=== PATIENT | female | born 1950 | race Hispanic/Latino ===

== ENCOUNTER 2017-08-29 12:28 | Emergency (ER) | payer MEDICARE ==
[2017-08-29 15:27] LABS: Bacteria,Urine 1+ /HPF (Negative); Bilirubin,Urine NEG (Negative); Blood,Urine SM (Negative); Ketones,Urine NEG (Negative); Leukocyte Esterase,Urine TR (Negative); Mucus,Urine FEW /HPF; Nitrite,Urine POS (Negative); Urobilinogen,Urine < 2.0 mg/dL (<2.0)
[2017-08-29 15:43] LABS: Anion Gap 21 mmol/L; BUN/Creatinine Ratio 33; Blood Urea Nitrogen 23 mg/dL (7-17); Calcium 8.6 mg/dL (8.4-10.2); Carbon Dioxide 21 mmol/L (22-30); Chloride 105.7 mmol/L (98-107); Glucose 97 mg/dL (65-100); Potassium 4.5 mmol/L (3.6-5.0); Sodium 143 mmol/L (137-145)
[2017-08-29 15:46] LABS: Basophils % (Auto) 0.4 % (0.0-1.8); Eosinophils % (Auto) 2.5 % (0.0-4.3); Hematocrit 41.4 % (30.3-42.9); Hemoglobin 13.8 gm/dl (10.1-14.3); Mean Corpuscular HGB Conc 33 % (30-34); Mean Corpuscular Hemoglobin 33 pg (28-32); Mean Corpuscular Volume 98 fl (79-97); Platelet Count 169 K/mm3 (140-440); Red Blood Count 4.22 M/mm3 (3.65-5.03); Red Cell Distribution Width 14.6 % (13.2-15.2); White Blood Count 9.4 K/mm3 (4.5-11.0)
[2017-08-29 16:32] LABS: INR 1.11 (0.87-1.13)
--- NOTE | 2017-08-29 16:40 | XRay Report ---
AP chest x-ray. History: Wheezing, productive cough. Findings: The heart and pulmonary vessels are normal. The lungs are clear. No pleural fluid. Median sternotomy sutures are present. Impression: No acute findings.
[2017-08-29] MEDS ORDERED: ZOFRAN IV ONE (17:14)
[2017-08-29] MEDS ORDERED: ROCEPHIN/NS 1 GM/50 ML 1 GM/50 ML BAG IV ONE (17:14)
[2017-08-29] MEDS ORDERED: NACL 0.9% 1000 ML 1,000 ML IV ONE (17:14)
--- NOTE | 2017-08-29 17:14 | Emergency Department Report ---
ED Abdominal Pain HPI - General Chief Complaint: Nausea/Vomiting/Diarrhea Stated Complaint: LIGHT HEADED/WEAKNESS Time Seen by Provider: 08/29/17 16:15 Source: patient, EMS Mode of arrival: Stretcher Limitations: No Limitations - History of Present Illness Initial Comments: Patient is a 67-year-old female history of hypertension COPD presented with vomiting and diffuse abdominal pain as well on for 2 days denied any diarrhea fever patient started abdominal pain is resolved now. Patient denied any chest pain shortness of breath. MD Complaint: abdominal pain -: Last night Location: diffuse Associated Symptoms: nausea, vomiting - Related Data Home Medications Medication Instructions Recorded Confirmed Last Taken Aspirin 81 mg PO DAILY 08/29/17 08/29/17 Unknown Citalopram [celeXA] 20 mg PO QDAY 08/29/17 08/29/17 08/22/17 Diltiazem [CarDIZEM] 90 mg PO DAILY 08/29/17 08/29/17 08/22/17 Warfarin [Coumadin] 2.5 mg PO QDAY 08/29/17 08/29/17 08/22/17 Allergies Allergy/AdvReac Type Severity Reaction Status Date / Time No Known Allergies Allergy Unverified 08/29/17 12:54 ED Review of Systems ROS: Stated complaint: LIGHT HEADED/WEAKNESS Other details as noted in HPI Comment: All other systems reviewed and negative Constitutional: denies: chills, fever Respiratory: denies: cough, orthopnea, shortness of breath, SOB with exertion Cardiovascular: denies: chest pain Gastrointestinal: abdominal pain, nausea, vomiting. denies: diarrhea, constipation Musculoskeletal: denies: back pain Neurological: denies: headache ED Past Medical Hx - Past Medical History Previous Medical History?: Yes Hx Hypertension: Yes Hx COPD: Yes Additional medical history: MECHANICAL AORTIC VALVE REPLACEMENT, SMOKER - Surgical History Past Surgical History?: Yes Additional Surgical History: BACK SURGERIES, AORTIC VALVE REPLACEMENT - Social History Smoking Status: Current Every Day Smoker Substance Use Type: None - Medications Home Medications: Home Medications Medication Instructions Recorded Confirmed Last Taken Type Aspirin 81 mg PO DAILY 08/29/17 08/29/17 Unknown History Citalopram [celeXA] 20 mg PO QDAY 08/29/17 08/29/17 08/22/17 History Diltiazem [CarDIZEM] 90 mg PO DAILY 08/29/17 08/29/17 08/22/17 History Warfarin [Coumadin] 2.5 mg PO QDAY 08/29/17 08/29/17 08/22/17 History ED Physical Exam - General Limitations: No Limitations General appearance: alert, in no apparent distress - Head Head exam: Present: normocephalic - ENT ENT exam: Present: normal exam - Neck Neck exam: Present: normal inspection. Absent: tenderness - Respiratory Respiratory exam: Present: normal lung sounds bilaterally. Absent: respiratory distress, wheezes, rales - Cardiovascular Cardiovascular Exam: Present: regular rate, normal rhythm, normal heart sounds - GI/Abdominal GI/Abdominal exam: Present: soft, normal bowel sounds. Absent: distended, tenderness, guarding, rebound, rigid, mass, bruit, pulsatile mass, hernia - Extremities Exam Extremities exam: Present: normal inspection, normal capillary refill - Neurological Exam Neurological exam: Present: alert, oriented X3, CN II-XII intact - Skin Skin exam: Present: warm, intact ED Course Vital Signs 08/29/17 08/29/17 08/29/17 12:49 14:31 14:45 Temperature 98.5 F Pulse Rate 79 62 Respiratory 18 12 Rate Blood Pressure 196/109 186/101 Blood Pressure [Left] O2 Sat by Pulse 94 99 100 Oximetry 08/29/17 08/29/17 08/29/17 15:01 15:06 15:15 Temperature Pulse Rate 55 L 61 Respiratory 17 18 19 Rate Blood Pressure 186/97 186/97 Blood Pressure [Left] O2 Sat by Pulse 100 94 97 Oximetry 08/29/17 08/29/17 08/29/17 15:31 15:45 16:01 Temperature Pulse Rate 61 74 63 Respiratory 16 22 15 Rate Blood Pressure 186/97 186/97 Blood Pressure [Left] O2 Sat by Pulse 100 99 Oximetry 08/29/17 08/29/17 08/29/17 16:39 16:45 17:01 Temperature Pulse Rate 65 66 67 Respiratory 18 17 17 Rate Blood Pressure Blood Pressure [Left] O2 Sat by Pulse 97 98 100 Oximetry 08/29/17 08/29/17 08/29/17 17:15 17:31 19:17 Temperature 97.9 F Pulse Rate 70 61 76 Respiratory 16 14 18 Rate Blood Pressure 193/93 Blood Pressure 176/92 [Left] O2 Sat by Pulse 99 99 100 Oximetry - Reevaluation(s) Reevaluation #1: 08/29/17 19:43 Patient stated that she is feeling better no nausea no vomiting headache is improved. ED Medical Decision Making - Lab Data Result diagrams: 08/29/17 15:04 08/29/17 15:04 - EKG Data -: EKG Interpreted by Me - EKG Data Interpretation: no acute changes - Radiology Data Radiology results: report reviewed CT brain/CT abdomen no acute abnormalities. - Medical Decision Making Patient stated that she is feeling better,her labs and x-ray came back negative for acute abnormalities, urine is positive for UTI, patient received Rocephin in the ER and will discharge with ciprofloxacin prescription and Zofran and patient to follow up with her primary care physician. Critical care attestation.: If time is entered above; I have spent that time in minutes in the direct care of this critically ill patient, excluding procedure time. ED Disposition Clinical Impression: Abdominal pain, Headache, UTI (urinary tract infection) Disposition: - TO HOME OR SELFCARE Is pt being admited?: No Condition: Stable Instructions: Urinary Tract Infection in Women (ED), Acute Nausea and Vomiting (ED) Referrals: PRIMARY CARE, [Primary Care Provider] - 3-5 Days
--- NOTE | 2017-08-29 17:29 | Cat Scan Report ---
FINAL REPORT EXAM: CT HEAD/BRAIN WO CON HISTORY: headache, nausea/vomiting TECHNIQUE: CT examination of the head without IV contrast PRIORS: None. FINDINGS: Patient motion artifact severely degrades image quality and severely limits the examination. Upper portion of brain obscured. Anterior portion of left frontal lobe not imaged. Scattered slight paranasal sinus mucosal thickening No acute air-fluid level visualized in the included air-filled sinuses. Visible bone windows demonstrate no acute fracture. There is ventricular and sulcal prominence compatible with global cerebrocortical atrophy. The visible brain contains no mass, mass effect, hemorrhage, or acute infarct. There is no visible extra-axial intracranial bleed, brain bleed, or midline shift. IMPRESSION: No acute CVA, intracranial bleed, or brain mass in the visible brain. Examination severely limited by motion artifact and left frontal lobe not completely visualized
--- NOTE | 2017-08-29 18:02 | Cat Scan Report ---
FINAL REPORT EXAM: CT ABDOMEN WO CON HISTORY: headache, nausea/vomiting TECHNIQUE: CT examination of the abdomen without IV contrast PRIORS: None. FINDINGS: Lumbar spine dorsal fusion hardware. Hardware appears intact without CT evidence of loosening. Metal artifact limits the examination. Degenerative change in the regional skeleton. Lumbar spine rotatory curvature with mid left apex. Sternotomy cerclage wires are present. There may be a prosthetic cardiac valve, partially imaged. Nonspecific bilobed nodular opacity in the right lung base extends from the hilum to the diaphragm. Sagittal dimension is approximately 2.2 cm with a transverse dimension of 1.7 cm. Margins are irregular. This may be scarring or atelectasis. Slight hepatomegaly with sagittal dimension of 18.1 cm. No evidence of focal liver lesion. Normal noncontrast appearance of the gallbladder, adrenals, pancreas, and spleen. Normal caliber abdominal aorta with severe calcified atherosclerotic plaque. Normal caliber IVC. Normal-appearing right kidney and visible right ureteral segment. A nonspecific, smoothly marginated, low density left renal lesion may be a cyst, favored by internal water density. No left renal calculus or hydronephrosis. No distention or calculus in visible left ureteral segment. Normal-appearing stomach and duodenum. No small bowel distention. No distention in visible portion of large intestine. No gross ascites or free air. No definite mass or adenopathy. IMPRESSION: Right lung base nodular opacity extending from the hilum to the inferior pleural surface at the diaphragm. This may be scarring or atelectasis. Differential includes inflammation, infection, or neoplasm Slight hepatomegaly without focal liver lesion No CT evidence of definite intestinal abnormality
[2017-08-29 19:20] VITALS: BP 176/92
[2017-08-29] MEDS ORDERED: LOVENOX SUB-Q ONE ×2 (20:08→20:58)
[2017-08-29] MEDS ORDERED: COUMADIN PO ONE (20:30)
== END 2017-08-29 21:10 | disposition home or self-care (01) ==
LOC: ED 12:28
DX: N39.0 Urinary tract infection, site not specified (principal); R10.9 Unspecified abdominal pain; R51 Headache; I10 Essential (primary) hypertension; J44.9 Chronic obstructive pulmonary disease, unspecified; F17.200 Nicotine dependence, unspecified, uncomplicated
CPT/HCPCS: 36415; 70450; 71010; 74150; 80048; 81001; 85025; 85610; 93005; 93010; 96365; 96372; 96375; 99285; J0696; J1650; J2405; J7030

== ENCOUNTER 2018-03-02 17:09 | Emergency (ER) | payer MEDICARE ==
[2018-03-02 17:58] VITALS: BP 153/106
--- NOTE | 2018-03-02 21:11 | Emergency Department Report ---
ED Medical Clearance HPI - General Chief complaint: Recheck/Abnormal Lab/Rx Stated complaint: MED REFILL Time Seen by Provider: 03/02/18 21:04 Source: patient Mode of arrival: Ambulatory - History of Present Illness Initial comments: 67-year-old -[place] female with a past medical history of A. fib depression comes in today for medication refill. Patient reports that she is out of medication and that her insurance is changing and she needs medication for at least one month. Patient declines any other issues at this time. Home medications: Home Medications Medication Instructions Recorded Confirmed Last Taken Aspirin 81 mg PO DAILY 08/29/17 08/29/17 Unknown Citalopram [celeXA] 20 mg PO QDAY 08/29/17 08/29/17 08/22/17 Diltiazem [CarDIZEM] 90 mg PO DAILY 08/29/17 08/29/17 08/22/17 Warfarin [Coumadin] 2.5 mg PO QDAY 08/29/17 08/29/17 08/22/17 Previous Rx's Medication Instructions Recorded Last Taken Type Acetaminophen/Codeine [Tylenol 1 tab PO Q6H PRN #30 tab 08/29/17 Unknown Rx /Codeine # 3 tab] Ciprofloxacin HCl [Ciprofloxacin 500 mg PO Q12H #14 tab 08/29/17 Unknown Rx TAB] Ondansetron [Zofran Odt] 4 mg PO Q8HR PRN #14 tab.rapdis 08/29/17 Unknown Rx Citalopram [Celexa] 40 mg PO QDAY #30 tablet 03/02/18 Unknown Rx Diltiazem [Cardizem] 90 mg PO BID #60 tablet 03/02/18 Unknown Rx Warfarin [Coumadin] 5 mg PO QDAY #34 tablet 03/02/18 Unknown Rx Allergies/Adverse reactions: Allergies Allergy/AdvReac Type Severity Reaction Status Date / Time No Known Allergies Allergy Verified 03/02/18 17:52 ED Review of Systems ROS: Stated complaint: MED REFILL Other details as noted in HPI Constitutional: denies: chills, fever Eyes: denies: eye pain, eye discharge, vision change ENT: denies: ear pain, throat pain Respiratory: denies: cough, shortness of breath, wheezing Cardiovascular: denies: chest pain, palpitations Endocrine: no symptoms reported Gastrointestinal: denies: abdominal pain, nausea, diarrhea Genitourinary: denies: urgency, dysuria, discharge Musculoskeletal: denies: back pain, joint swelling, arthralgia Skin: denies: rash, lesions Neurological: denies: headache, weakness, paresthesias Psychiatric: denies: anxiety, depression Hematological/Lymphatic: denies: easy bleeding, easy bruising ED Past Medical Hx - Past Medical History Hx Hypertension: Yes Hx COPD: Yes Additional medical history: MECHANICAL AORTIC VALVE REPLACEMENT, SMOKER - Surgical History Additional Surgical History: BACK SURGERIES, AORTIC VALVE REPLACEMENT - Social History Smoking Status: Never Smoker Substance Use Type: None - Medications Home Medications: Home Medications Medication Instructions Recorded Confirmed Last Taken Type Acetaminophen/Codeine [Tylenol 1 tab PO Q6H PRN #30 tab 08/29/17 Unknown Rx /Codeine # 3 tab] Aspirin 81 mg PO DAILY 08/29/17 08/29/17 Unknown History Ciprofloxacin HCl [Ciprofloxacin 500 mg PO Q12H #14 tab 08/29/17 Unknown Rx TAB] Citalopram [celeXA] 20 mg PO QDAY 08/29/17 08/29/17 08/22/17 History Diltiazem [CarDIZEM] 90 mg PO DAILY 08/29/17 08/29/17 08/22/17 History Ondansetron [Zofran Odt] 4 mg PO Q8HR PRN #14 tab.rapdis 08/29/17 Unknown Rx Warfarin [Coumadin] 2.5 mg PO QDAY 08/29/17 08/29/17 08/22/17 History Citalopram [Celexa] 40 mg PO QDAY #30 tablet 03/02/18 Unknown Rx Diltiazem [Cardizem] 90 mg PO BID #60 tablet 03/02/18 Unknown Rx Warfarin [Coumadin] 5 mg PO QDAY #34 tablet 03/02/18 Unknown Rx ED Physical Exam - General Limitations: No Limitations General appearance: alert, in no apparent distress - Head Head exam: Present: atraumatic, normocephalic - Eye Eye exam: Present: normal appearance - ENT ENT exam: Present: mucous membranes moist - Respiratory Respiratory exam: Present: normal lung sounds bilaterally. Absent: respiratory distress - Cardiovascular Cardiovascular Exam: Present: regular rate, normal rhythm. Absent: systolic murmur, diastolic murmur, rubs, gallop - Extremities Exam Extremities exam: Present: normal inspection - Back Exam Back exam: Present: normal inspection - Neurological Exam Neurological exam: Present: alert, oriented X3 - Psychiatric Psychiatric exam: Present: normal affect, normal mood ED Course Vital Signs 03/02/18 17:52 Temperature 98.6 F Pulse Rate 66 Respiratory 16 Rate Blood Pressure 153/106 O2 Sat by Pulse 96 Oximetry ED Medical Decision Making - Medical Decision Making Patient's been evaluated by this provider fast track. I discussed the patient she is to follow up with her primary care provider for management of her chronic issues. Patient verbalized understanding. ED Disposition Clinical Impression: Encounter for medication refill Disposition: DC-01 TO HOME OR SELFCARE Is pt being admited?: No Does the pt Need Aspirin: No Condition: Stable Additional Instructions: Please follow-up with your primary care provider as soon as possible. For further management of her chronic diseases. Prescriptions: Citalopram [Celexa] 40 mg PO QDAY #30 tablet Diltiazem [Cardizem] 90 mg PO BID #60 tablet Warfarin [Coumadin] 5 mg PO QDAY #34 tablet Referrals: PRIMARY CARE [Primary Care Provider] - 3-5 Days
== END 2018-03-02 21:22 | disposition home or self-care (01) ==
LOC: ED 17:09
DX: I48.91 Unspecified atrial fibrillation (principal); Z76.0 Encounter for issue of repeat prescription; F32.9 Major depressive disorder, single episode, unspecified; Z79.82 Long term (current) use of aspirin; I10 Essential (primary) hypertension; J44.9 Chronic obstructive pulmonary disease, unspecified
CPT/HCPCS: 99282

== ENCOUNTER 2021-01-19 23:11 | Inpatient (IN) | payer MEDICARE, OTHER ==
--- NOTE | 2021-01-19 23:29 | Emergency Department Report ---
ED General Adult HPI - General Chief complaint: Pain General Stated complaint: SWELLING IN RT BREAST Time Seen by Provider: 01/19/21 23:19 Source: EMS Mode of arrival: Stretcher Limitations: Altered Mental Status - History of Present Illness Initial comments: Patient is 70 years old female with history of dementia, hypertension and mechanical aortic valve replacement. Patient presented to the ER via EMS from home with the main complaint of bilateral breast swelling. Patient stated that she thinks she has a congestive heart failure. Patient currently denying any chest pain, shortness of breath or lower extremity swelling. Patient also denied any fever or chills. However patient daughter stated that she has been having shortness of breath and difficulty in breathing for the last few days. No history of congestive heart failure before. -: days(s) Severity scale (0 -10): 0 - Related Data Home Medications Medication Instructions Recorded Confirmed Last Taken Aspirin 81 mg PO DAILY 08/29/17 08/29/17 Unknown Citalopram [celeXA] 20 mg PO QDAY 08/29/17 08/29/17 08/22/17 Warfarin [Coumadin] 2.5 mg PO QDAY 08/29/17 08/29/17 08/22/17 dilTIAZem [CarDIZEM] 90 mg PO DAILY 08/29/17 08/29/17 08/22/17 Previous Rx's Medication Instructions Recorded Last Taken Type Acetaminophen/Codeine [Tylenol 1 tab PO Q6H PRN #30 tab 08/29/17 Unknown Rx /Codeine # 3 tab] Ciprofloxacin HCl [Ciprofloxacin 500 mg PO Q12H #14 tab 08/29/17 Unknown Rx TAB] Ondansetron [Zofran Odt] 4 mg PO Q8HR PRN #14 tab.rapdis 08/29/17 Unknown Rx Citalopram [Celexa] 40 mg PO QDAY #30 tablet 03/02/18 Unknown Rx Warfarin [Coumadin] 5 mg PO QDAY #34 tablet 03/02/18 Unknown Rx dilTIAZem [Cardizem] 90 mg PO BID #60 tablet 03/02/18 Unknown Rx Allergies Allergy/AdvReac Type Severity Reaction Status Date / Time No Known Allergies Allergy Verified 03/02/18 17:52 ED Review of Systems ROS: Stated complaint: SWELLING IN RT BREAST Other details as noted in HPI Comment: All other systems reviewed and negative Constitutional: denies: chills, fever Respiratory: denies: cough, shortness of breath, SOB with exertion, SOB at rest Cardiovascular: denies: chest pain, palpitations Gastrointestinal: denies: abdominal pain, nausea Musculoskeletal: denies: back pain Neurological: denies: headache, weakness ED Past Medical Hx - Past Medical History Hx Hypertension: Yes Hx COPD: Yes Additional medical history: MECHANICAL AORTIC VALVE REPLACEMENT, SMOKER - Surgical History Additional Surgical History: BACK SURGERIES, AORTIC VALVE REPLACEMENT - Social History Smoking Status: Former Smoker - Medications Home Medications: Home Medications Medication Instructions Recorded Confirmed Last Taken Type Acetaminophen/Codeine [Tylenol 1 tab PO Q6H PRN #30 tab 08/29/17 Unknown Rx /Codeine # 3 tab] Aspirin 81 mg PO DAILY 08/29/17 08/29/17 Unknown History Ciprofloxacin HCl [Ciprofloxacin 500 mg PO Q12H #14 tab 08/29/17 Unknown Rx TAB] Citalopram [celeXA] 20 mg PO QDAY 08/29/17 08/29/17 08/22/17 History Ondansetron [Zofran Odt] 4 mg PO Q8HR PRN #14 tab.rapdis 08/29/17 Unknown Rx Warfarin [Coumadin] 2.5 mg PO QDAY 08/29/17 08/29/17 08/22/17 History dilTIAZem [CarDIZEM] 90 mg PO DAILY 08/29/17 08/29/17 08/22/17 History Citalopram [Celexa] 40 mg PO QDAY #30 tablet 03/02/18 Unknown Rx Warfarin [Coumadin] 5 mg PO QDAY #34 tablet 03/02/18 Unknown Rx dilTIAZem [Cardizem] 90 mg PO BID #60 tablet 03/02/18 Unknown Rx ED Physical Exam - General Limitations: Altered Mental Status General appearance: alert, in no apparent distress - Head Head exam: Present: atraumatic, normocephalic, normal inspection - Eye Eye exam: Present: normal appearance - ENT ENT exam: Present: normal exam, normal orophraynx, mucous membranes moist - Neck Neck exam: Present: normal inspection, full ROM. Absent: tenderness, meningismus - Respiratory Respiratory exam: Present: normal lung sounds bilaterally - Cardiovascular Cardiovascular Exam: Present: regular rate, normal rhythm, normal heart sounds - GI/Abdominal GI/Abdominal exam: Present: soft, normal bowel sounds. Absent: distended, tenderness, guarding, rebound, rigid, organomegaly, mass, bruit, pulsatile mass, hernia - Extremities Exam Extremities exam: Present: normal inspection, full ROM, normal capillary refill. Absent: pedal edema, calf tenderness - Back Exam Back exam: Present: normal inspection, full ROM. Absent: CVA tenderness (R), CVA tenderness (L) - Neurological Exam Neurological exam: Present: alert, oriented X3, CN II-XII intact - Psychiatric Psychiatric exam: Present: normal mood - Skin Skin exam: Present: warm, intact, normal color ED Course Vital Signs 01/19/21 01/19/21 01/19/21 23:21 23:30 23:46 Temperature 98.1 F Pulse Rate 87 86 88 Respiratory 20 28 H 28 H Rate Blood Pressure 152/80 127/54 Blood Pressure 156/99 [Left] O2 Sat by Pulse 100 100 100 Oximetry ED Medical Decision Making - Lab Data Result diagrams: 01/19/21 23:25 - EKG Data -: EKG Interpreted by Dc Rate: normal - EKG Data 01/20/21 00:30 Atrial fibrillation with a heart rate of 82. - Medical Decision Making Patient is 70 years old female with history of dementia, hypertension and mechanical aortic valve replacement. Patient presented to the ER via EMS from home with the main complaint of bilateral breast swelling. Patient stated that she thinks she has a congestive heart failure. Patient currently denying any chest pain, shortness of breath or lower extremity swelling. Patient also denied any fever or chills. However patient daughter stated that she has been having shortness of breath and difficulty in breathing for the last few days. No history of congestive heart failure before. EKG showed a atrial fibrillation with a heart rate of 82. Chest x-ray showed pulmonary edema with right pleural effusion. Rest of the labs are unremarkable except for his significantly elevated BNP of more than 13,000. Patient received Lasix 40 mg IV. I discussed the patient with Dr. Mccrary, he agreed to admit the patient to medical service for further management. Critical Care Time: Yes Critical care time in (mins) excluding proc time.: 30 Critical care attestation.: If time is entered above; I have spent that time in minutes in the direct care of this critically ill patient, excluding procedure time. ED Disposition Clinical Impression: New onset of congestive heart failure, Shortness of breath Disposition: OP ADMIT IP TO THIS HOSP Is pt being admited?: Yes Condition: Stable Referrals: PRIMARY CARE, [Primary Care Provider] - 3-5 Days
--- NOTE | 2021-01-20 | XRay Report ---
XR chest 1V ap INDICATION / CLINICAL INFORMATION: Dyspnea. COMPARISON: None available. FINDINGS: SUPPORT DEVICES: None. HEART /PULMONARY VASCULATURE: Cardiac enlargement with pulmonary vasculature congestion.Median sterno chika changes. LUNGS / PLEURA: Trace right pleural effusion and mild airspace opacity. No pneumothorax. ADDITIONAL FINDINGS: No significant additional findings. IMPRESSION: Findings most consistent with CHF with trace right pleural effusion and pulmonary edema. Signer Name: Porfirio Carter MD Signed: 01/19/2021 11:56 PM Workstation Name: [id number]
[2021-01-20 00:09] LABS: BUN/Creatinine Ratio 26; Blood Urea Nitrogen 23 mg/dL (7-17); Calcium 8.3 mg/dL (8.4-10.2); Hemolysis Index 2
[2021-01-20 00:11] LABS: Albumin 3.1 g/dL (3.9-5); Bilirubin,Direct 0.3 mg/dL (0-0.2)
[2021-01-20] MEDS ORDERED: FUROSEMIDE 40 MG/4 ML INJ IV ONE (00:26)
[2021-01-20 00:28] LABS: INR 3.26 (0.87-1.13)
[2021-01-20 00:29] LABS: Partial Thromboplastin Time 52.4 Sec. (24.2-36.6)
[2021-01-20 00:38] LABS: Basophils % (Auto) 0.2 % (0.0-1.8); Eosinophils # (Auto) 0.1 K/mm3 (0.0-0.4); Eosinophils % (Auto) 1.1 % (0.0-4.3); Hematocrit 30.4 % (30.3-42.9); Hemoglobin 9.6 gm/dl (10.1-14.3); Lymphocytes # (Auto) 0.8 K/mm3 (1.2-5.4); Lymphocytes % (Auto) 12.6 % (13.4-35.0); Mean Corpuscular HGB Conc 32 % (30-34); Mean Corpuscular Volume 82 fl (79-97); Monocytes # (Auto) 0.6 K/mm3 (0.0-0.8); Monocytes % (Auto) 9.1 % (0.0-7.3); Platelet Count 293 K/mm3 (140-440); Red Blood Count 3.71 M/mm3 (3.65-5.03); Red Cell Distribution Width 18.2 % (13.2-15.2)
[2021-01-20] MEDS ORDERED: ONDANSETRON 4 MG/2 ML INJ IV PRN (01:54)
--- NOTE | 2021-01-20 05:28 | History and Physical Report ---
History of Present Illness Date of examination: 01/20/21 Date of admission: 01/20/21 00:51 Chief complaint: Chief complaint is shortness of breath History of present illness: History of presenting illness, patient is a 70-year-old female with past medical history of hypertension, dementia and aortic valve disease who presented to the emergency room with complaint of swelling in both breasts, however patient's daughter said that patient has been having shortness of breath. Denies history of cough according to the patient but no history of ankle edema, chest pain, fever or chills Past History Past Medical History: COPD, hypertension, other (DEMENTIA , AORTIC VALVE LESION) Past Surgical History: valve replacement, Other (BACK SURGERY) Social history: no significant social history Family history: no significant family history Medications and Allergies Allergies Allergy/AdvReac Type Severity Reaction Status Date / Time No Known Allergies Allergy Verified 03/02/18 17:52 Home Medications Medication Instructions Recorded Confirmed Last Taken Type Acetaminophen/Codeine [Tylenol 1 tab PO Q6H PRN #30 tab 08/29/17 Unknown Rx /Codeine # 3 tab] Aspirin 81 mg PO DAILY 08/29/17 08/29/17 Unknown History Ciprofloxacin HCl [Ciprofloxacin 500 mg PO Q12H #14 tab 08/29/17 Unknown Rx TAB] Citalopram [celeXA] 20 mg PO QDAY 08/29/17 08/29/17 08/22/17 History Ondansetron [Zofran Odt] 4 mg PO Q8HR PRN #14 tab.rapdis 08/29/17 Unknown Rx Warfarin [Coumadin] 2.5 mg PO QDAY 08/29/17 08/29/17 08/22/17 History dilTIAZem [CarDIZEM] 90 mg PO DAILY 08/29/17 08/29/17 08/22/17 History Citalopram [Celexa] 40 mg PO QDAY #30 tablet 03/02/18 Unknown Rx Warfarin [Coumadin] 5 mg PO QDAY #34 tablet 03/02/18 Unknown Rx dilTIAZem [Cardizem] 90 mg PO BID #60 tablet 03/02/18 Unknown Rx Active Meds: Active Medications Acetaminophen (Acetaminophen 325 Mg Tab) 650 mg PO Q4H PRN PRN Reason: Pain, Mild (1-3) Aspirin (Aspirin 81 Mg Tab Chew) 81 mg PO DAILY [facility] Citalopram Hydrobromide (Citalopram 20 Mg Tab) 20 mg PO QDAY [facility] Furosemide (Furosemide 40 Mg/4 Ml Inj) 40 mg IV QDAY [facility] Nitroglycerin (Nitroglycerin 2% Oint 1 Gm) 0.5 inch TP QIDNTG [facility]; Protocol Ondansetron HCl (Ondansetron 4 Mg/2 Ml Inj) 4 mg IV Q8H PRN PRN Reason: Nausea And Vomiting Warfarin Sodium (Warfarin 2.5 Mg Tab) 2.5 mg PO QDAY [facility]; Protocol Review of Systems Constitutional: weakness, no fever, no chills, no sweats Eyes: bilateral: other (NO BILATERAL EYE SYMPTOM) Ears, nose, mouth and throat: no ear pain Breasts: deferred Cardiovascular: shortness of breath, no chest pain, no orthopnea, no palpitations, no rapid/irregular heart beat, no edema, no syncope, no lightheadedness Respiratory: shortness of breath, dyspnea on exertion, no cough, no cough with sputum, no congestion, no wheezing, no pleurisy Gastrointestinal: no nausea, no vomiting, no diarrhea, no constipation Genitourinary Female: no Menstruation: postmenopausal Rectal: no pain Musculoskeletal: no neck stiffness, no neck pain Integumentary: no rash, no pruritis, no redness, no sores, no wounds Neurological: no weakness, no numbness, no seizures, no syncope, no tremors, no vertigo, no headaches Psychiatric: no anxiety, no confusion Endocrine: no polyuria, no nocturia Hematologic/Lymphatic: no easy bruising, no lymphadenopathy Exam - Constitutional Vitals: Temp Pulse Resp BP Pulse Ox 97.2 F L 86 18 153/74 96 01/20/21 04:10 01/20/21 04:10 01/20/21 04:10 01/20/21 04:10 01/20/21 04:10 General appearance: Present: no acute distress - EENT Eyes: Present: PERRL, EOM intact ENT: hearing intact, clear oral mucosa - Neck Neck: Present: supple, normal ROM - Respiratory Respiratory effort: normal - Cardiovascular Rhythm: regular Heart Sounds: Present: S1 & S2. Absent: gallop, systolic murmur, diastolic murm ur, click - Extremities Extremities: no ischemia, No edema - Abdominal General gastrointestinal: Present: soft, non-tender, non-distended. Absent: tender, distended, mass Female genitourinary: Present: deferred - Rectal Rectal Exam: deferred - Integumentary Integumentary: Present: clear, warm, dry - Musculoskeletal Musculoskeletal: generalized weakness - Psychiatric Psychiatric: appropriate mood/affect HEART Score - HEART Score Risk factors: 1-2 risk factors Troponin: Troponin T 0.053 ng/mL (0.00-0.029) H 01/20/21 02:05 Troponin: < normal limit - Critical Actions Critical Actions: 0-3 pts:0.9-1.7%risk of adverse cardiac event.Candidate for discharge Results - Labs CBC & Chem 7: 01/19/21 23:25 01/19/21 23:25 Labs: Laboratory Last Values WBC 6.5 K/mm3 (4.5-11.0) 01/19/21 23: RBC 3.71 M/mm3 (3.65-5.03) 01/19/21 23: Hgb 9.6 gm/dl (10.1-14.3) L 01/19/21 23: Hct 30.4 % (30.3-42.9) 01/19/21 23: MCV 82 fl (79-97) 01/19/21 23: MCH 26 pg (28-32) L 01/19/21 23: MCHC 32 % (30-34) 01/19/21 23:25 RDW 18.2 % (13.2-15.2) H 01/19/21 23:25 Plt Count 293 K/mm3 (140-440) 01/19/21 23: Lymph % (Auto) 12.6 % (13.4-35.0) L 01/19/21 23: [place] % (Auto) 9.1 % (0.0-7.3) H 01/19/21 23: Eos % (Auto) 1.1 % (0.0-4.3) 01/19/21 23: Baso % (Auto) 0.2 % (0.0-1.8) 01/19/21 23: Lymph # (Auto) 0.8 K/mm3 (1.2-5.4) L 01/19/21: [place] # (Auto) 0.6 K/mm3 (0.0-0.8) 01/19/21 23:25 Eos # (Auto) 0.1 K/mm3 (0.0-0.4) 01/19/21 23:25 Baso # (Auto) 0.0 K/mm3 (0.0-0.1) 01/19/21 23:25 Seg Neutrophils % 77.0 % (40.0-70.0) H 01/19/21 23:25 Seg Neutrophils # 5.0 K/mm3 (1.8-7.7) 01/19/21 23:25 PT 33.5 Sec. (12.2-14.9) H 01/19/21 23:25 INR 3.26 (0.87-1.13) H 01/19/21 23:25 APTT 52.4 Sec. (24.2-36.6) H 01/19/21 23:25 Sodium 138 mmol/L (137-145) 01/19/21 23:25 Potassium 3.6 mmol/L (3.6-5.0) 01/19/21 23:25 Chloride 102.0 mmol/L (98-107) 01/19/21 23:25 Carbon Dioxide 28 mmol/L (22-30) 01/19/21 23:25 Anion Gap 12 mmol/L 01/19/21 23:25 BUN 23 mg/dL (7-17) H 01/19/21 23:25 Creatinine 0.9 mg/dL (0.6-1.2) 01/19/21 23:25 Estimated GFR > 60 ml/min 01/19/21 23:25 BUN/Creatinine Ratio 26 % 01/19/21 23:25 Glucose 90 mg/dL (65-100) 01/19/21 23:25 Calcium 8.3 mg/dL (8.4-10.2) L 01/19/21 23:25 Total Bilirubin 0.70 mg/dL (0.1-1.2) 01/19/21 23:25 Direct Bilirubin 0.3 mg/dL (0-0.2) H 01/19/21 23:25 Indirect Bilirubin 0.4 mg/dL 01/19/21 23:25 AST 22 units/L (5-40) 01/19/21 23:25 ALT 13 units/L (7-56) 01/19/21 23:25 Alkaline Phosphatase 74 units/L (35-129) 01/19/21 23:25 Troponin T 0.053 ng/mL (0.00-0.029) H 01/20/21 02:05 NT-Pro-B Natriuret Pep 39564 pg/mL (0-900) H 01/19/21 23:25 Total Protein 7.9 g/dL (6.3-8.2) 01/19/21 23:25 Albumin 3.1 g/dL (3.9-5) L 01/19/21 23:25 Albumin/Globulin Ratio 0.6 % 01/19/21 23:25 [place]/IV: Voiding Method External Female Catheter Assessment and Plan - Patient Problems (1) New onset of congestive heart failure Current Visit: Yes Status: Acute Plan to address problem: 1. SERIAL CARDIAC ENZYME 2. CARDIOLOGY CONSULT FOR NEW ONSET CHF WITH ELEVATED TROPONIN LEVEL 3. TELEMETRY MONITORING 4. 2 D ECHOCARDIOGRAM 5. I.V LASIX 6 NITROPASTE 7. OXYGEN BY NASAL CANNULA 8 . CONTINUE ANTICOAGULANT THERAPY AND OTHER HOME MEDICATIONS 9. ASPIRIN PO
[2021-01-20 05:41] LABS: Chol/HDL Ratio 3.58 %
[2021-01-20] MEDS: NITROGLYCERIN 2% OINT 1 GM TP SCH ×4 (07:56→19:23)
[2021-01-20 08:24] LABS: INR 3.55 (0.87-1.13)
[2021-01-20] MEDS: CITALOPRAM 20 MG TAB PO SCH (09:22)
[2021-01-20] MEDS: ASPIRIN 81 MG TAB CHEW PO SCH (09:22)
[2021-01-20] MEDS ORDERED: WARFARIN 2.5 MG TAB PO SCH (10:00)
--- NOTE | 2021-01-20 11:44 | Consultation ---
History of Present Illness Consult date: 01/20/21 Requesting physician: GONZALEZ MITCHELL Consult reason: congestive heart failure History of present illness: This patient is a 70 year old female with a significant history of Mechanical Aortic Valve, chronic anticoagulation on Coumadin, HTN, Dementia. She is previously unknown to our practice. HPI obtained per chart. She is currently alert but confused and is a poor historian, unable to contact daughter for medical history. Patient presented to [facility] ER by EMS after daughter reported SOB x several days. Patient is denies any current chest pain, shortness of breath, or weakness. Tele reviewed: Atrial Fibrillation HR 80s. ECG shows atrial Fibrillation. Echo is pending. Previous Echo from 2011 shows EF 55%, mechanical Aortic Valve. Past History Past Medical History: hypertension, other (DEMENTIA , Mechanical Aortic Valve) Past Surgical History: valve replacement, Other (BACK SURGERY) Social history: no significant social history Family history: no significant family history Medications and Allergies Allergies Allergy/AdvReac Type Severity Reaction Status Date / Time No Known Allergies Allergy Verified 03/02/18 17:52 Home Medications Medication Instructions Recorded Confirmed Last Taken Type Acetaminophen/Codeine [Tylenol 1 tab PO Q6H PRN #30 tab 08/29/17 Unknown Rx /Codeine # 3 tab] Aspirin 81 mg PO DAILY 08/29/17 08/29/17 Unknown History Ciprofloxacin HCl [Ciprofloxacin 500 mg PO Q12H #14 tab 08/29/17 Unknown Rx TAB] Citalopram [celeXA] 20 mg PO QDAY 08/29/17 08/29/17 08/22/17 History Ondansetron [Zofran Odt] 4 mg PO Q8HR PRN #14 tab.rapdis 08/29/17 Unknown Rx Warfarin [Coumadin] 2.5 mg PO QDAY 08/29/17 08/29/17 08/22/17 History dilTIAZem [CarDIZEM] 90 mg PO DAILY 08/29/17 08/29/17 08/22/17 History Citalopram [Celexa] 40 mg PO QDAY #30 tablet 03/02/18 Unknown Rx Warfarin [Coumadin] 5 mg PO QDAY #34 tablet 03/02/18 Unknown Rx dilTIAZem [Cardizem] 90 mg PO BID #60 tablet 03/02/18 Unknown Rx Active Meds: Active Medications Acetaminophen (Acetaminophen 325 Mg Tab) 650 mg PO Q4H PRN PRN Reason: Pain, Mild (1-3) Aspirin (Aspirin 81 Mg Tab Chew) 81 mg PO DAILY [facility] Last Admin: 01/20/21 09:22 Dose: 81 mg Documented by: Citalopram Hydrobromide (Citalopram 20 Mg Tab) 20 mg PO QDAY [facility] Last Admin: 01/20/21 09:22 Dose: 20 mg Documented by: Diltiazem HCl (Diltiazem 90 Mg Tab) 90 mg PO TID [facility] Furosemide (Furosemide 40 Mg/4 Ml Inj) 40 mg IV QDAY [facility] Nitroglycerin (Nitroglycerin 2% Oint 1 Gm) 0.5 inch TP QIDNTG [facility]; Protocol Last Admin: 01/20/21 09:22 Dose: 0.5 inch Documented by: Ondansetron HCl (Ondansetron 4 Mg/2 Ml Inj) 4 mg IV Q8H PRN PRN Reason: Nausea And Vomiting Review of Systems All systems: negative (Pt with Dementia, no current complaints) Physical Examination Last Vital Signs Temp 99.4 F 01/20/21 07:38 Pulse 78 01/20/21 07:38 Resp 18 01/20/21 04:10 BP 164/76 01/20/21 07:38 Pulse Ox 96 01/20/21 07:38 General appearance: no acute distress HEENT: Positive: PERRL Neck: Positive: neck supple, trachea midline Cardiac: Positive: irregularly irregular, S1/S2 Lungs: Positive: Decreased Breath Sounds Neuro: Positive: Grossly Intact Abdomen: Positive: Unremarkable Skin: Negative: Rash, Wound Extremities: Present: upper extr. pulses, lower extr. pulses, edema (Trace bilateral lower extremity edema) Results 01/19/21 23:25 01/19/21 23:25 Cardiac Enzymes 01/19/21 Range/Units 23:25 AST 22 (5-40) units/L Coagulation 01/19/21 01/20/21 Range/Units 23:25 07:09 PT 33.5 H 36.1 H (12.2-14.9) Sec. INR 3.26 H 3.55 H (0.87-1.13) APTT 52.4 H (24.2-36.6) Sec. Lipids 01/19/21 Range/Units 23:25 Triglycerides 70 (2-149) mg/dL Cholesterol 111 (50-199) mg/dL HDL Cholesterol 31 L (40-59) mg/dL Cholesterol/HDL Ratio 3.58 % CBC 01/19/21 Range/Units 23:25 WBC 6.5 (4.5-11.0) K/mm3 RBC 3.71 (3.65-5.03) M/mm3 Hgb 9.6 L (10.1-14.3) gm/dl Hct 30.4 (30.3-42.9) % Plt Count 293 (140-440) K/mm3 Lymph # (Auto) 0.8 L (1.2-5.4) K/mm3 [place] # (Auto) 0.6 (0.0-0.8) K/mm3 Eos # (Auto) 0.1 (0.0-0.4) K/mm3 Baso # (Auto) 0.0 (0.0-0.1) K/mm3 Comprehensive Metabolic Panel 01/19/21 01/19/21 Range/Units 23:25 23:25 Sodium 138 (137-145) mmol/L Potassium 3.6 (3.6-5.0) mmol/L Chloride 102.0 (98-107) mmol/L Carbon Dioxide 28 (22-30) mmol/L BUN 23 H (7-17) mg/dL Creatinine 0.9 (0.6-1.2) mg/dL Glucose 90 (65-100) mg/dL Calcium 8.3 L (8.4-10.2) mg/dL Direct Bilirubin 0.3 H (0-0.2) mg/dL Indirect Bilirubin 0.4 mg/dL AST 22 (5-40) units/L ALT 13 (7-56) units/L Alkaline Phosphatase 74 (35-129) units/L Total Protein 7.9 (6.3-8.2) g/dL Albumin 3.1 L (3.9-5) g/dL - Imaging and Cardiology Echo: pending, report reviewed (Previous Echo from 2011 shows EF 55%, mechanical Aortic Valve.) EKG: report reviewed, image reviewed EKG interpretations - Telemetry EKG Rhythm: Atrial Fibrillation - EKG Supraventricular dysrhythmia: atrial fibrillation Assessment and Plan Patient presents with ?mild component heart failure. She has a hx of preserved EF and mechanical aortic valve replacement. She is also noted to be in atrial fibrillation. She is a rather poor historian due to dementia. Will continue to attempt to contact daughter via telephone. Agree with gentle diuretics. Optimize HR- resume home cardizem. Continue coumadin with target INR 2.5-3.5. Obtain TTE. Will follow. This patient was seen in conjunction with Dr Dubon who agrees with this assessment and plan of care. - Patient Problems (1) Acute heart failure Current Visit: Yes Status: Acute (2) Elevated troponin Current Visit: Yes Status: Acute (3) Hx of aortic valve replacement, mechanical Current Visit: Yes Status: Chronic (4) Anticoagulated on Coumadin Current Visit: Yes Status: Chronic (5) Atrial fibrillation Current Visit: Yes Status: Acute (6) HTN (hypertension) Current Visit: Yes Status: Chronic (7) Dementia Current Visit: Yes Status: Chronic
--- NOTE | 2021-01-20 12:19 | Event Note ---
Date: 01/20/21 70-year-old female patient was admitted this morning with worsening shortness of breath patient also has history of mechanical heart valve placement on chronic anticoagulation with Coumadin, dementia cardiology evaluated the patient, work-up is in progress. Agree with the current management We will closely monitor the patient and adjust the management as needed Plan of care reviewed with the patient and her nurse
[2021-01-20] MEDS: FUROSEMIDE 40 MG/4 ML INJ IV SCH (12:35)
[2021-01-20 14:48] LABS: Creatine Kinase MB 2.6 ng/mL (0.0-4.0)
[2021-01-20 19:11] LABS: Creatine Kinase MB 2.6 ng/mL (0.0-4.0)
[2021-01-20] MEDS: ACETAMINOPHEN 325 MG TAB PO PRN (22:39)
[2021-01-21 06:15] LABS: Hematocrit 23.8 % (30.3-42.9); Hemoglobin 7.6 gm/dl (10.1-14.3); Mean Corpuscular HGB Conc 32 % (30-34); Mean Corpuscular Volume 80 fl (79-97); Platelet Count 257 K/mm3 (140-440); Red Blood Count 2.97 M/mm3 (3.65-5.03); Red Cell Distribution Width 17.8 % (13.2-15.2)
[2021-01-21 06:48] LABS: BUN/Creatinine Ratio 29; Blood Urea Nitrogen 23 mg/dL (7-17); Calcium 7.9 mg/dL (8.4-10.2); Hemolysis Index 0
[2021-01-21 07:32] LABS: INR 3.03 (0.87-1.13)
[2021-01-21] MEDS: ASPIRIN 81 MG TAB CHEW PO SCH (09:07)
[2021-01-21] MEDS: CITALOPRAM 20 MG TAB PO SCH (09:07)
[2021-01-21] MEDS: NITROGLYCERIN 2% OINT 1 GM TP SCH ×3 (09:08→16:59)
[2021-01-21] MEDS: FUROSEMIDE 40 MG/4 ML INJ IV SCH (09:09)
[2021-01-21 10:08] LABS: Hematocrit 25.4 % (30.3-42.9); Hemoglobin 8.1 gm/dl (10.1-14.3)
--- NOTE | 2021-01-21 10:33 | Progress Note ---
Assessment and Plan tte reviewed - EF 50-55%, abnormal diastolic function, mechanical aortic valve well seated with normal function, mild to mod MR, mild TR, RVSP 32mmHg. Currently stable cardiac status. Pt appears to be at euvolemia. Convert IV lasix to PO lasix 20mg daily. Convert PO cardizem TID to cardizem CD 240mg daily. Pt is noted to have reduced Hgb&Hct today. Further eval/management per primary. Pt's daughter, [place], spoken with via telephone. Updated on assessment and plan of care. Per pt's daughter, [facility]. Pt may discharge from cardiology standpoint on present cardiac regimen. Recommend pt follow up with [facility] cardiology within 1-2 weeks of discharge. The patient has been seen in conjunction with Dr. Dubon who agrees with the assessment and plan of care. - Patient Problems (1) Acute heart failure with preserved ejection fraction (HFpEF) Current Visit: Yes Status: Acute (2) Hx of aortic valve replacement, mechanical Current Visit: Yes Status: Chronic (3) Anticoagulated on Coumadin Current Visit: Yes Status: Chronic (4) Anemia Current Visit: Yes Status: Acute (5) Atrial fibrillation Current Visit: Yes Status: Acute (6) Elevated troponin Current Visit: Yes Status: Acute (7) HTN (hypertension) Current Visit: Yes Status: Chronic (8) Dementia Current Visit: Yes Status: Chronic Subjective Date of service: 01/21/21 Principal diagnosis: HF Interval history: pt resting comfortably in bed, pleasantly confused, no current complaints. tele reviewed - in AFib HR 70s. Objective Last Vital Signs Temp 98.6 F 01/21/21 08:31 Pulse 89 01/21/21 09:08 Resp 17 01/21/21 08:31 BP 131/78 01/21/21 09:08 Pulse Ox 95 01/21/21 08:31 - Physical Examination General: No Apparent Distress HEENT: Positive: PERRL Neck: Positive: neck supple, trachea midline Cardiac: Positive: irregularly irregular, S1/S2 Lungs: Positive: Decreased Breath Sounds Neuro: Positive: Grossly Intact Abdomen: Positive: Unremarkable Skin: Negative: Rash, Wound Extremities: Present: upper extr. pulses, lower extr. pulses. Absent: edema - Labs and Meds Cardiac Enzymes 01/20/21 01/20/21 Range/Units 13:17 18:15 CK-MB (CK-2) 2.6 2.6 (0.0-4.0) ng/mL Coagulation 01/21/21 Range/Units 05:05 PT 31.8 H (12.2-14.9) Sec. INR 3.03 H (0.87-1.13) CBC 01/21/21 01/21/21 Range/Units 05:05 09:45 WBC 6.3 (4.5-11.0) K/mm3 RBC 2.97 L (3.65-5.03) M/mm3 Hgb 7.6 L 8.1 L (10.1-14.3) gm/dl Hct 23.8 L D 25.4 L (30.3-42.9) % Plt Count 257 (140-440) K/mm3 Comprehensive Metabolic Panel 01/21/21 Range/Units 05:05 Sodium 137 (137-145) mmol/L Potassium 3.4 L (3.6-5.0) mmol/L Chloride 100.8 (98-107) mmol/L Carbon Dioxide 29 (22-30) mmol/L BUN 23 H (7-17) mg/dL Creatinine 0.8 (0.6-1.2) mg/dL Glucose 85 (65-100) mg/dL Calcium 7.9 L (8.4-10.2) mg/dL - Imaging and Cardiology EKG: report reviewed, image reviewed Echo: report reviewed (Previous Echo from 2011 shows EF 55%, mechanical Aortic Valve.) - Telemetry EKG Rhythm: Atrial Fibrillation
--- NOTE | 2021-01-21 13:45 | Progress Note ---
Assessment and Plan Assessment and plan: --Anemia; Drop in hemoglobin from 9.6-7.6-8.1 Patient is on Coumadin for her mechanical heart valve INR: 03 therapeutic, no external evidence of bleeding Check stool for occult blood if positive consider GI evaluation, if negative and patient is stable may be discharged home tomorrow --Acute congestive heart failure with preserved left ventricular function; Continue current antifailure medications Input output monitoring, Fluid restriction --History of mechanical aortic valve replacement; On chronic anticoagulation with Coumadin, therapeutic INR However mild drop in H&H, closely monitor --History of atrial fibrillation; Rate controlled, continue current management --non-ST elevation VA; Nonspecific, elevation of troponin Cardiology evaluated no work-up at this point --Hypertension; moderate control --History of dementia; supportive care --DVT prophylaxis; patient is on Coumadin, therapeutic levels --Full CODE STATUS; Will monitor overnight for any change in H&H Follow-up stool for occult blood Admit discharge home tomorrow if stable History Interval history: I seen and examined the patient at the bedside this morning Patient's chart and medications reviewed Patient feels slightly better however H&H has significantly dropped Patient has mechanical valve placement on Coumadin Vital signs noted Hospitalist Physical - Constitutional Vitals: Temp Pulse Resp BP Pulse Ox 97.9 F 75 18 135/49 90 01/21/21 12:19 01/21/21 13:01 01/21/21 12:19 01/21/21 13:01 01/21/21 12:19 General appearance: Present: no acute distress, well-nourished, obese (Morbidly obese) - EENT Eyes: Present: PERRL, EOM intact - Neck Neck: Present: supple, normal ROM - Respiratory Respiratory effort: normal Respiratory: bilateral: diminished, negative: rales, rhonchi, wheezing - Cardiovascular Rhythm: regular Heart Sounds: Present: S1 & S2 - Extremities Extremities: no ischemia, No edema - Abdominal General gastrointestinal: soft, non-tender, non-distended, normal bowel sounds - Integumentary Integumentary: Present: clear, warm - Psychiatric Psychiatric: appropriate mood/affect, cooperative - Neurologic Neurologic: CNII-XII intact, moves all extremities HEART Score - HEART Score Risk factors: 1-2 risk factors Troponin: Troponin T 0.053 ng/mL (0.00-0.029) H 01/20/21 13:17 Troponin: < normal limit - Critical Actions Critical Actions: 0-3 pts:0.9-1.7%risk of adverse cardiac event.Candidate for discharge Results - Labs CBC & Chem 7: 01/21/21 09:45 01/21/21 05:05 Labs: Laboratory Last Values WBC 6.3 K/mm3 (4.5-11.0) 01/21/21 05:05 RBC 2.97 M/mm3 (3.65-5.03) L 01/21/21 05:05 Hgb 8.1 gm/dl (10.1-14.3) L 01/21/21 09:45 Hct 25.4 % (30.3-42.9) L 01/21/21 09:45 MCV 80 fl (79-97) 01/21/21 05:05 MCH 26 pg (28-32) L 01/21/21 05:05 MCHC 32 % (30-34) 01/21/21 05:05 RDW 17.8 % (13.2-15.2) H 01/21/21 05:05 Plt Count 257 K/mm3 (140-440) 01/21/21 05:05 Lymph % (Auto) 12.6 % (13.4-35.0) L 01/19/21 23:25 Sandoval % (Auto) 9.1 % (0.0-7.3) H 01/19/21 23:25 Eos % (Auto) 1.1 % (0.0-4.3) 01/19/21 23:25 Baso % (Auto) 0.2 % (0.0-1.8) 01/19/21 23:25 Lymph # (Auto) 0.8 K/mm3 (1.2-5.4) L 01/19/21 23:25 Sandoval # (Auto) 0.6 K/mm3 (0.0-0.8) 01/19/21 23:25 Eos # (Auto) 0.1 K/mm3 (0.0-0.4) 01/19/21 23:25 Baso # (Auto) 0.0 K/mm3 (0.0-0.1) 01/19/21 23:25 Seg Neutrophils % 77.0 % (40.0-70.0) H 01/19/21 23:25 Seg Neutrophils # 5.0 K/mm3 (1.8-7.7) 01/19/21 23:25 PT 31.8 Sec. (12.2-14.9) H 01/21/21 05:05 INR 3.03 (0.87-1.13) H 01/21/21 05:05 APTT 52.4 Sec. (24.2-36.6) H 01/19/21 23:25 Sodium 137 mmol/L (137-145) 01/21/21 05:05 Potassium 3.4 mmol/L (3.6-5.0) L 01/21/21 05:05 Chloride 100.8 mmol/L (98-107) 01/21/21 05:05 Carbon Dioxide 29 mmol/L (22-30) 01/21/21 05:05 Anion Gap 11 mmol/L 01/21/21 05:05 BUN 23 mg/dL (7-17) H 01/21/21 05:05 Creatinine 0.8 mg/dL (0.6-1.2) 01/21/21 05:05 Estimated GFR > 60 ml/min 01/21/21 05:05 BUN/Creatinine Ratio 29 % 01/21/21 05:05 Glucose 85 mg/dL (65-100) 01/21/21 05:05 Calcium 7.9 mg/dL (8.4-10.2) L 01/21/21 05:05 Total Bilirubin 0.70 mg/dL (0.1-1.2) 01/19/21 23:25 Direct Bilirubin 0.3 mg/dL (0-0.2) H 01/19/21 23:25 Indirect Bilirubin 0.4 mg/dL 01/19/21 23:25 AST 22 units/L (5-40) 01/19/21 23:25 ALT 13 units/L (7-56) 01/19/21 23:25 Alkaline Phosphatase 74 units/L (35-129) 01/19/21 23:25 Total Creatine Kinase 78 units/L (30-135) 01/20/21 18:15 CK-MB (CK-2) 2.6 ng/mL (0.0-4.0) 01/20/21 18:15 CK-MB (CK-2) Rel Index 3.3 (0-4) 01/20/21 18:15 Troponin T 0.053 ng/mL (0.00-0.029) H 01/20/21 13:17 NT-Pro-B Natriuret Pep 11779 pg/mL (0-900) H 01/19/21 23:25 Total Protein 7.9 g/dL (6.3-8.2) 01/19/21 23:25 Albumin 3.1 g/dL (3.9-5) L 01/19/21 23:25 Albumin/Globulin Ratio 0.6 % 01/19/21 23:25 Triglycerides 70 mg/dL (2-149) 01/19/21 23:25 Cholesterol 111 mg/dL (50-199) 01/19/21 23:25 LDL Cholesterol Direct 74 mg/dL (50-130) 01/19/21 23:25 HDL Cholesterol 31 mg/dL (40-59) L 01/19/21 23:25 Cholesterol/HDL Ratio 3.58 % 01/19/21 23:25 - Diagnostic Impressions Diagnostic Impressions: Echocardiogram 01/20/21 06:00 Transthoracic Echocardiogram Indication: SOB BP: 164/76 HR: 91 Conclusions *Global left ventricular systolic function is normal. *The estimated ejection fraction is 50-55%. *Abnormal left ventricular diastolic function is observed.Indeterminate *The right ventricular global systolic function is normal. *The mechanical aortic valve appears well seated with normal function. *There is mild to moderate mitral regurgitation. *The mitral regurgitant jet is eccentric. *There is mild tricuspid regurgitation. *The right ventricular systolic pressure is calculated at 32 mmHg. *There is no evidence of pulmonic regurgitation. Findings Left Ventricle: The left ventricular chamber size is normal. There is no left ventricular hypertrophy. Global left ventricular wall motion and contractility are within normal limits. Global left ventricular systolic function is normal. The estimated ejection fraction is 50-55%. Abnormal left ventricular diastolic function is observed.Indeterminate Left Atrium: The left atrial chamber size is normal. Right Ventricle: The right ventricular cavity size is normal. The right ventricular global systolic function is normal. Right Atrium: The right atrium is mildly dilated. Aortic Valve: There is trace of aortic regurgitation. The mean gradient of the aortic valve is 17.03 mmHg. The peak instantaneous gradient of the aortic valve is 32.36 mmHg. A single tilting disk aortic valve is present. The mechanical aortic valve appears well seated with normal function. Mitral Valve: Mild mitral leaflet calcification is visualized. There is mild to moderate mitral regurgitation. The mitral regurgitant jet is eccentric. Tricuspid Valve: The tricuspid valve leaflets are normal. There is mild tricuspid regurgitation. The right ventricular systolic pressure is calculated at 32 mmHg. Pulmonic Valve: The pulmonic valve is not well visualized. There is no evidence of pulmonic regurgitation. Pericardium: There is no pericardial effusion. Aorta: The aorta appears normal. Venous: The inferior vena cava appears normal in size. There is a greater than 50% respiratory change in the inferior vena cava dimension. Measurements Chambers 2D Name Value Normal Range IVSd (2D) 0.99 cm (0.6 - 1.1) LVPWd (2D) 1.13 cm (0.6 - 1.1) LVIDd (2D) 4.58 cm (3.7 - 5.6) LVIDs (2D) 3.14 cm (2 - 3.8) LV FS (2D) 31.42 % - EF Teichholz (2D) 59.37 % - Ao root diameter (2D) 2.49 cm (2 - 3.7) Volumes/Mass Name Value Normal Range LA ESV SP 4CH (A/L) 57.58 ml - LA ESV SP 2CH (A/L) 58.7 ml - LA ESV BP (A/L) 67.36 ml - LA ESV BP (A/L) index 34.37 ml/m2 - LA ESV SP 4CH (MOD) 53.69 ml - LA ESV SP 2CH (MOD) 58.32 ml - LA ESV BP (MOD) 64.04 ml - LA ESV BP (MOD) index 32.67 ml/m2 - Aortic Valve Name Value Normal Range AV Vmax 2.84 m/sec - AV VTI 50.53 cm - AV peak gradient 32.36 mmHg - AV mean gradient 17.03 mmHg - LVOT diameter 1.56 cm - LVOT Vmax 2.83 m/sec - LVOT VTI 55.85 cm - LVOT peak gradient 31.96 mmHg - LVOT mean gradient 18.74 mmHg - SV LVOT 107.19 ml - KEL (continuity Vmax) 1.91 cm2 - KEL (continuity VTI) 2.12 cm2 - Mitral Valve Name Value Normal Range MV PHT 74.12 msec - MVA (PHT) 2.97 cm2 - Tricuspid Valve Name Value Normal Range TR Vmax 2.67 m/sec - TR peak gradient 29 mmHg - RAP 3 mmHg - RVSP 32 mmHg - IVC diameter 2.29 cm (1.2 - 2.3) Pulmonic Valve/Qp:Qs Name Value Normal Range PV Vmax 0.94 m/sec - PV peak gradient 3.5 mmHg - PV acceleration time 106.57 msec - [place]/IV: Voiding Method External Female Catheter Active Medications - Current Medications Current Medications: Generic Name Dose Route Start Last Admin Trade Name Freq PRN Reason Stop Dose Admin Acetaminophen 650 mg 01/20/21 01:54 01/20/21 22:39 Acetaminophen 325 Mg Tab PO 650 mg Q4H PRN Administration Pain, Mild (1-3) Aspirin 81 mg 01/20/21 10:00 01/21/21 09:07 Aspirin 81 Mg Tab Chew PO 81 mg DAILY ROHINI Administration Citalopram Hydrobromide 20 mg 01/20/21 10:00 01/21/21 09:07 Citalopram 20 Mg Tab PO 20 mg QDAY ROHINI Administration Diltiazem HCl 90 mg 01/20/21 11:10 01/21/21 13:01 Diltiazem 90 Mg Tab PO 01/22/21 01:00 90 mg TID ROHINI Administration Diltiazem HCl 240 mg 01/22/21 10:00 Diltiazem Cd 240 Mg Cap PO QDAY [facility] Furosemide 20 mg 01/22/21 10:00 Furosemide 20 Mg Tab PO QDAY [facility] Nitroglycerin 0.5 inch 01/20/21 06:00 01/21/21 13:02 Nitroglycerin 2% Oint 1 Gm TP Not Given QIDNTG [facility] Protocol Ondansetron HCl 4 mg 01/20/21 01:54 Ondansetron 4 Mg/2 Ml Inj IV Q8H PRN Nausea And Vomiting Warfarin Sodium 1 mg 01/21/21 17:00 Warfarin 1 Mg Tab PO DAILY@1700 [facility] Nutrition/Malnutrition Assess - Dietary Evaluation Nutrition/Malnutrition Findings: Nutrition Notes Start: 01/20/21 10:38 Freq: Status: Active Protocol: Document 01/20/21 10:38 AT (Rec: 01/20/21 10:43 AT [id number]) Co-Sign 01/20/21 10:38 CW Nutrition Notes Need for Assessment generated from: Education Initial or Follow up Brief Note Current Diagnosis COPD,Hypertension,Heart Failure Other Pertinent Diagnosis SOB, Vascular Dementia Current Diet Low Sodium Diet Subjective/Other Information Screen for DNI. Per chart, pt' s Coumadin was d/c. Pt has mild AMS due to Dementia, but says that she is on Warfarin at home. Pt is not appropriate for education. Provided handout to pt and informed her to share with daughter. Did not have a number for daughter /graphic art technician, but spoke with nurse about providing handout to graphic art technician. #1 Nutrition Diagnosis Food and nutrition-related knowledge deficit Etiology pt on Coumadin As Evidenced by Signs and Symptoms no previous eduucation about drug-nutrient interactions Nutrition Intervention Teaching Recipient Patient Learning Readiness Confused Teaching Methods Discussion,Handout Response to Teaching Unable to comprehend Education Handouts Provided Vitamin K and Medications (for family) Barriers to Learning Age related RD phone number provided No Patient aware of follow up options No Revisit per MD consult or patient Sign Off request:
[2021-01-21] MEDS ORDERED: WARFARIN 1 MG TAB PO SCH (17:00)
[2021-01-22] MEDS: NITROGLYCERIN 2% OINT 1 GM TP SCH ×2 (06:03→09:23)
[2021-01-22 06:49] LABS: Hematocrit 23.6 % (30.3-42.9); Hemoglobin 7.6 gm/dl (10.1-14.3)
[2021-01-22 06:59] LABS: INR 2.56 (0.87-1.13)
[2021-01-22] MEDS: CITALOPRAM 20 MG TAB PO SCH (09:21)
[2021-01-22] MEDS: FUROSEMIDE 20 MG TAB PO SCH (09:22)
[2021-01-22] MEDS: dilTIAZem CD 240 MG CAP PO SCH (09:22)
[2021-01-22] MEDS: FERROUS SULFATE 325 MG TAB PO SCH ×2 (09:22→22:21)
[2021-01-22] MEDS: ASPIRIN 81 MG TAB CHEW PO SCH (09:23)
[2021-01-22] MEDS ORDERED: SODIUM CHLORIDE 0.9% 500 ML 500 ML IV SCH (11:30)
--- NOTE | 2021-01-22 11:33 | Progress Note ---
Assessment and Plan Currently stable cardiac status. Pt appears to be at euvolemia. Continue current cardiac regimen. Anemia noted-PRBC infusion ordered per primary. Further evaluation/management per primary. Stool study is negative for occult bleeding. Continue coumadin as Patient has mechanical aortic valve. Pt may discharge from cardiology standpoint on present cardiac regimen. Recommend pt follow up with [facility] cardiology within 1-2 weeks of discharge. The patient has been seen in conjunction with Dr. Dubon who agrees with the assessment and plan of care. - Patient Problems (1) Acute heart failure with preserved ejection fraction (HFpEF) Current Visit: Yes Status: Acute (2) Hx of aortic valve replacement, mechanical Current Visit: Yes Status: Chronic (3) Anticoagulated on Coumadin Current Visit: Yes Status: Chronic (4) Anemia Current Visit: Yes Status: Acute (5) Atrial fibrillation Current Visit: Yes Status: Acute (6) Elevated troponin Current Visit: Yes Status: Acute (7) HTN (hypertension) Current Visit: Yes Status: Chronic (8) Dementia Current Visit: Yes Status: Chronic Subjective Date of service: 01/22/21 Principal diagnosis: Heart Failure reduced Ejection Fraction Interval history: Patient is resting in bed comfortably. Alert and oriented. Tele reviewed: Afib, HR 80s. Objective Last Vital Signs Temp 98.9 F 01/22/21 09:13 Pulse 74 01/22/21 09:23 Resp 18 01/22/21 09:13 BP 142/64 01/22/21 09:23 Pulse Ox 93 01/22/21 09:13 - Physical Examination General: No Apparent Distress HEENT: Positive: PERRL Neck: Positive: neck supple, trachea midline Cardiac: Positive: irregularly irregular, S1/S2 Lungs: Positive: clear to auscultation, Normal Breath Sounds Neuro: Positive: Grossly Intact Abdomen: Positive: Unremarkable Skin: Negative: Rash, Wound Extremities: Present: upper extr. pulses, lower extr. pulses. Absent: edema - Labs and Meds Coagulation 01/22/21 Range/Units 06:09 PT 27.8 H (12.2-14.9) Sec. INR 2.56 H (0.87-1.13) CBC 01/22/21 Range/Units 06:09 Hgb 7.6 L (10.1-14.3) gm/dl Hct 23.6 L (30.3-42.9) % Comprehensive Metabolic Panel 01/22/21 Range/Units 06:09 Potassium 3.5 L (3.6-5.0) mmol/L - Imaging and Cardiology EKG: report reviewed, image reviewed Echo: report reviewed (tte reviewed - EF 50-55%, abnormal diastolic function, mechanical aortic valve well seated with normal function, mild to mod MR, mild TR, RVSP 32mmHg. Previous Echo from 2011 shows EF 55%, mechanical Aortic Valve.)
--- NOTE | 2021-01-22 11:48 | Progress Note ---
Assessment and Plan Assessment and plan: --Anemia; Drop in hemoglobin from 9.6-7.6-8.1-7.6 Patient is on Coumadin for her mechanical heart valve INR: 03 therapeutic, no external evidence of bleeding Stool for occult blood negative Cardiology recommended 1 unit PRBC transfusion And discharge if stable --Acute congestive heart failure with preserved left ventricular function; Continue current antifailure medications Input output monitoring, Fluid restriction --History of mechanical aortic valve replacement; On chronic anticoagulation with Coumadin, therapeutic INR However mild drop in H&H, closely monitor Cardiology recommend to DC the patient on 2 mg of Coumadin Target INR 2.5-3.5 --History of atrial fibrillation; Rate controlled, continue current management --non-ST elevation SC; Nonspecific, elevation of troponin Cardiology evaluated no work-up at this point --Hypertension; moderate control --History of dementia; supportive care --DVT prophylaxis; patient is on Coumadin, therapeutic levels --Full CODE STATUS; We will check posttransfusion H&H and discharge the patient if stable 01/21/2021; patient had mild drop in hemoglobin Patient is on chronic anticoagulation with Coumadin for metallic heart valve Closely monitor overnight for any drop in hemoglobin any evidence of bleeding Check stool for occult blood to rule out GI bleeding 01/22/21; patient's hemoglobin dropped today from 9.6 -8.1-7.6 Will transfuse 1 unit of PRBC, discharged this evening if stable However blood transfusion was not given as nurse reports that she could not get a consent For the blood transfusion History Interval history: I have seen and examined the patient at the bedside Patient feels slightly better, had mild drop in hemoglobin Transfuse 1 unit of PRBC Patient has no new complaints Vital signs reviewed Hospitalist Physical - Constitutional Vitals: Temp Pulse Resp BP Pulse Ox 98.9 F 74 18 142/64 93 01/22/21 09:13 01/22/21 09:23 01/22/21 09:13 01/22/21 09:23 01/22/21 09:13 General appearance: Present: no acute distress, well-nourished, obese (Morbidly obese) - EENT Eyes: Present: PERRL, EOM intact - Neck Neck: Present: supple, normal ROM - Respiratory Respiratory effort: normal Respiratory: bilateral: diminished, negative: rales, rhonchi, wheezing - Cardiovascular Rhythm: regular Heart Sounds: Present: S1 & S2 - Extremities Extremities: no ischemia, No edema - Abdominal General gastrointestinal: soft, non-tender, non-distended, normal bowel sounds - Integumentary Integumentary: Present: clear, warm - Psychiatric Psychiatric: appropriate mood/affect, cooperative - Neurologic Neurologic: CNII-XII intact, moves all extremities HEART Score - HEART Score Risk factors: 1-2 risk factors Troponin: Troponin T 0.053 ng/mL (0.00-0.029) H 01/20/21 13:17 Troponin: < normal limit - Critical Actions Critical Actions: 0-3 pts:0.9-1.7%risk of adverse cardiac event.Candidate for discharge Results - Labs CBC & Chem 7: 01/22/21 06:09 01/22/21 06:09 Labs: Laboratory Last Values WBC 6.3 K/mm3 (4.5-11.0) 01/21/21 05:05 RBC 2.97 M/mm3 (3.65-5.03) L 01/21/21 05:05 Hgb 7.6 gm/dl (10.1-14.3) L 01/22/21 06:09 Hct 23.6 % (30.3-42.9) L 01/22/21 06:09 MCV 80 fl (79-97) 01/21/21 05:05 MCH 26 pg (28-32) L 01/21/21 05:05 MCHC 32 % (30-34) 01/21/21 05:05 RDW 17.8 % (13.2-15.2) H 01/21/21 05:05 Plt Count 257 K/mm3 (140-440) 01/21/21 05:05 Lymph % (Auto) 12.6 % (13.4-35.0) L 01/19/21 23:25 Barren % (Auto) 9.1 % (0.0-7.3) H 01/19/21 23:25 Eos % (Auto) 1.1 % (0.0-4.3) 01/19/21 23:25 Baso % (Auto) 0.2 % (0.0-1.8) 01/19/21 23:25 Lymph # (Auto) 0.8 K/mm3 (1.2-5.4) L 01/19/21 23:25 Barren # (Auto) 0.6 K/mm3 (0.0-0.8) 01/19/21 23:25 Eos # (Auto) 0.1 K/mm3 (0.0-0.4) 01/19/21 23:25 Baso # (Auto) 0.0 K/mm3 (0.0-0.1) 01/19/21 23:25 Seg Neutrophils % 77.0 % (40.0-70.0) H 01/19/21 23:25 Seg Neutrophils # 5.0 K/mm3 (1.8-7.7) 01/19/21 23:25 PT 27.8 Sec. (12.2-14.9) H 01/22/21 06:09 INR 2.56 (0.87-1.13) H 01/22/21 06:09 APTT 52.4 Sec. (24.2-36.6) H 01/19/21 23:25 Sodium 137 mmol/L (137-145) 01/21/21 05:05 Potassium 3.5 mmol/L (3.6-5.0) L 01/22/21 06:09 Chloride 100.8 mmol/L (98-107) 01/21/21 05:05 Carbon Dioxide 29 mmol/L (22-30) 01/21/21 05:05 Anion Gap 11 mmol/L 01/21/21 05:05 BUN 23 mg/dL (7-17) H 01/21/21 05:05 Creatinine 0.8 mg/dL (0.6-1.2) 01/21/21 05:05 Estimated GFR > 60 ml/min 01/21/21 05:05 BUN/Creatinine Ratio 29 % 01/21/21 05:05 Glucose 85 mg/dL (65-100) 01/21/21 05:05 POC Glucose 71 mg/dL (70-105) 01/22/21 08:06 Calcium 7.9 mg/dL (8.4-10.2) L 01/21/21 05:05 Magnesium 1.90 mg/dL (1.7-2.3) 01/22/21 06:09 Total Bilirubin 0.70 mg/dL (0.1-1.2) 01/19/21 23:25 Direct Bilirubin 0.3 mg/dL (0-0.2) H 01/19/21 23:25 Indirect Bilirubin 0.4 mg/dL 01/19/21 23:25 AST 22 units/L (5-40) 01/19/21 23:25 ALT 13 units/L (7-56) 01/19/21 23:25 Alkaline Phosphatase 74 units/L (35-129) 01/19/21 23:25 Total Creatine Kinase 78 units/L (30-135) 01/20/21 18:15 CK-MB (CK-2) 2.6 ng/mL (0.0-4.0) 01/20/21 18:15 CK-MB (CK-2) Rel Index 3.3 (0-4) 01/20/21 18:15 Troponin T 0.053 ng/mL (0.00-0.029) H 01/20/21 13:17 NT-Pro-B Natriuret Pep 74170 pg/mL (0-900) H 01/19/21 23:25 Total Protein 7.9 g/dL (6.3-8.2) 01/19/21 23:25 Albumin 3.1 g/dL (3.9-5) L 01/19/21 23:25 Albumin/Globulin Ratio 0.6 % 01/19/21 23:25 Triglycerides 70 mg/dL (2-149) 01/19/21 23:25 Cholesterol 111 mg/dL (50-199) 01/19/21 23:25 LDL Cholesterol Direct 74 mg/dL (50-130) 01/19/21 23:25 HDL Cholesterol 31 mg/dL (40-59) L 01/19/21 23:25 Cholesterol/HDL Ratio 3.58 % 01/19/21 23:25 Microbiology: Microbiology 01/21/21 Unknown Stool Stool Occult Blood (MICHAEL) - Final - Diagnostic Impressions Diagnostic Impressions: Echocardiogram 01/20/21 06:00 Transthoracic Echocardiogram Indication: SOB BP: 164/76 HR: 91 Conclusions *Global left ventricular systolic function is normal. *The estimated ejection fraction is 50-55%. *Abnormal left ventricular diastolic function is observed.Indeterminate *The right ventricular global systolic function is normal. *The mechanical aortic valve appears well seated with normal function. *There is mild to moderate mitral regurgitation. *The mitral regurgitant jet is eccentric. *There is mild tricuspid regurgitation. *The right ventricular systolic pressure is calculated at 32 mmHg. *There is no evidence of pulmonic regurgitation. Findings Left Ventricle: The left ventricular chamber size is normal. There is no left ventricular hypertrophy. Global left ventricular wall motion and contractility are within normal limits. Global left ventricular systolic function is normal. The estimated ejection fraction is 50-55%. Abnormal left ventricular diastolic function is observed.Indeterminate Left Atrium: The left atrial chamber size is normal. Right Ventricle: The right ventricular cavity size is normal. The right ventricular global systolic function is normal. Right Atrium: The right atrium is mildly dilated. Aortic Valve: There is trace of aortic regurgitation. The mean gradient of the aortic valve is 17.03 mmHg. The peak instantaneous gradient of the aortic valve is 32.36 mmHg. A single tilting disk aortic valve is present. The mechanical aortic valve appears well seated with normal function. Mitral Valve: Mild mitral leaflet calcification is visualized. There is mild to moderate mitral regurgitation. The mitral regurgitant jet is eccentric. Tricuspid Valve: The tricuspid valve leaflets are normal. There is mild tricuspid regurgitation. The right ventricular systolic pressure is calculated at 32 mmHg. Pulmonic Valve: The pulmonic valve is not well visualized. There is no evidence of pulmonic regurgitation. Pericardium: There is no pericardial effusion. Aorta: The aorta appears normal. Venous: The inferior vena cava appears normal in size. There is a greater than 50% respiratory change in the inferior vena cava dimension. Measurements Chambers 2D Name Value Normal Range IVSd (2D) 0.99 cm (0.6 - 1.1) LVPWd (2D) 1.13 cm (0.6 - 1.1) LVIDd (2D) 4.58 cm (3.7 - 5.6) LVIDs (2D) 3.14 cm (2 - 3.8) LV FS (2D) 31.42 % - EF Teichholz (2D) 59.37 % - Ao root diameter (2D) 2.49 cm (2 - 3.7) Volumes/Mass Name Value Normal Range LA ESV SP 4CH (A/L) 57.58 ml - LA ESV SP 2CH (A/L) 58.7 ml - LA ESV BP (A/L) 67.36 ml - LA ESV BP (A/L) index 34.37 ml/m2 - LA ESV SP 4CH (MOD) 53.69 ml - LA ESV SP 2CH (MOD) 58.32 ml - LA ESV BP (MOD) 64.04 ml - LA ESV BP (MOD) index 32.67 ml/m2 - Aortic Valve Name Value Normal Range AV Vmax 2.84 m/sec - AV VTI 50.53 cm - AV peak gradient 32.36 mmHg - AV mean gradient 17.03 mmHg - LVOT diameter 1.56 cm - LVOT Vmax 2.83 m/sec - LVOT VTI 55.85 cm - LVOT peak gradient 31.96 mmHg - LVOT mean gradient 18.74 mmHg - SV LVOT 107.19 ml - KEL (continuity Vmax) 1.91 cm2 - KEL (continuity VTI) 2.12 cm2 - Mitral Valve Name Value Normal Range MV PHT 74.12 msec - MVA (PHT) 2.97 cm2 - Tricuspid Valve Name Value Normal Range TR Vmax 2.67 m/sec - TR peak gradient 29 mmHg - RAP 3 mmHg - RVSP 32 mmHg - IVC diameter 2.29 cm (1.2 - 2.3) Pulmonic Valve/Qp:Qs Name Value Normal Range PV Vmax 0.94 m/sec - PV peak gradient 3.5 mmHg - PV acceleration time 106.57 msec - [place]/IV: Voiding Method Bedpan Active Medications - Current Medications Current Medications: Generic Name Dose Route Start Last Admin Trade Name Freq PRN Reason Stop Dose Admin Acetaminophen 650 mg 01/20/21 01:54 01/20/21 22:39 Acetaminophen 325 Mg Tab PO 650 mg Q4H PRN Administration Pain, Mild (1-3) Aspirin 81 mg 01/20/21 10:00 01/22/21 09:23 Aspirin 81 Mg Tab Chew PO 81 mg DAILY ROHINI Administration Citalopram Hydrobromide 20 mg 01/20/21 10:01/22/21 09:21 Citalopram 20 Mg Tab PO 20 mg QDAY ROHINI Administration Diltiazem HCl 240 mg 01/22/21 10:00 01/22/21 09:22 Diltiazem Cd 240 Mg Cap PO 240 mg QDAY ROHINI Administration Ferrous Sulfate 325 mg 01/22/21 10:00 01/22/21 09:22 Ferrous Sulfate 325 Mg Tab PO 325 mg BID ROHINI Administration Furosemide 20 mg 01/22/21 10:00 01/22/21 09:22 Furosemide 20 Mg Tab PO 20 mg QDAY ROHINI Administration Sodium Chloride 500 mls @ 0 mls/hr 01/22/21 11:30 Nacl 0.9% 500 Ml IV 01/22/21 19:00 ONCE ROHINI As Directed Nitroglycerin 0.5 inch 01/20/21 06:00 01/22/21 09:23 Nitroglycerin 2% Oint 1 Gm TP 0.5 inch QIDNTG ROHINI Administration Protocol Ondansetron HCl 4 mg 01/20/21 01:54 Ondansetron 4 Mg/2 Ml Inj IV Q8H PRN Nausea And Vomiting Warfarin Sodium 2 mg 01/22/21 17:00 Warfarin 1 Mg Tab PO DAILY@1700 [facility] Nutrition/Malnutrition Assess - Dietary Evaluation Nutrition/Malnutrition Findings: Nutrition Notes Start: 01/20/21 10 :38 Freq: Status: Active Protocol: Document 01/20/21 10:38 AT (Rec: 01/20/21 10:43 AT [id number]) Co-Sign 01/20/21 10:38 Nutrition Notes Need for Assessment generated from: Education Initial or Follow up Brief Note Current Diagnosis COPD,Hypertension,Heart Failure Other Pertinent Diagnosis SOB, Vascular Dementia Current Diet Low Sodium Diet Subjective/Other Information Screen for DNI. Per chart, pt' s Coumadin was d/c. Pt has mild AMS due to Dementia, but says that she is on Warfarin at home. Pt is not appropriate for education. Provided handout to pt and informed her to share with daughter. Did not have a number for daughter /leather grader, but spoke with nurse about providing handout to leather grader. #1 Nutrition Diagnosis Food and nutrition-related knowledge deficit Etiology pt on Coumadin As Evidenced by Signs and Symptoms no previous eduucation about drug-nutrient interactions Nutrition Intervention Teaching Recipient Patient Learning Readiness Confused Teaching Methods Discussion,Handout Response to Teaching Unable to comprehend Education Handouts Provided Vitamin K and Medications (for family) Barriers to Learning Age related RD phone number provided No Patient aware of follow up options No Revisit per MD consult or patient Sign Off request:
[2021-01-22] MEDS: WARFARIN 1 MG TAB PO SCH (17:13)
--- NOTE | 2021-01-22 23:26 | Event Note ---
Date: 01/22/21 I SPOKE WITH PATIENT'S DAUGHTER AT ABOUT 10.45 TO 10.50 PM AFTER THE NURSE SAID SHE COULD NOT GET HER TO GIVE CONSENT FOR TRANSFUSION OF 1 UNIT OF PRBC REQUESTED BY CARDIOLOGY CONSULT. THE DAUGHTER SAID THAT SHE WAS LIED TO BY SOMEBODY WHO TOLD HER THAT THE MOTHER HAS ALREADY HAD BLOOD TRANSFUSION. THE DAUGHTER SAID THAT SHE DOES NOT WANT HER MOTHER TO RECEIVE TRANSFUSION UNLESS IT IS CRITICAL BECAUSE SHE BELIEVED THAT HER HEMOGLOBIN DROPPED BECAUSE SHE WAS NOT EATING ENOUGH FOOD. SHE SAID THAT SIMILAR THIGH HAS HAPPENED BEFORE WHEN SHE WAS ADMITTED AND DAUGHTER REQUESTED THAT SHE BE GIVEN ENSURE TO GIVE HER ENERGY. PLAN; 1. WILL HOLD BLOOD TRANSFUSION REQUESTED BY THE DAUGHTER AND MONITOR HEMOGLOBIN AND HEMATOCRIT . 2. PATIENT TO RECEIVE ENSURE REQUESTED BY THE DAUGHTER
[2021-01-23] MEDS: ACETAMINOPHEN 325 MG TAB PO PRN ×2 (05:22→22:15)
[2021-01-23 05:51] LABS: Hematocrit 24.2 % (30.3-42.9); Hemoglobin 7.8 gm/dl (10.1-14.3); Mean Corpuscular HGB Conc 32 % (30-34); Mean Corpuscular Volume 81 fl (79-97); Platelet Count 271 K/mm3 (140-440); Red Blood Count 2.98 M/mm3 (3.65-5.03); Red Cell Distribution Width 17.8 % (13.2-15.2)
[2021-01-23 05:59] LABS: INR 2.99 (0.87-1.13)
[2021-01-23 06:06] LABS: BUN/Creatinine Ratio 28; Blood Urea Nitrogen 22 mg/dL (7-17); Hemolysis Index 1
--- NOTE | 2021-01-23 08:21 | Progress Note ---
Assessment and Plan Assessment and plan: Patient's daughter Asuncion reyse was very upset and angry and refused blood transfusion She also was upset about some nurse lying about her mother's care and blood transfusion She was very upset that case management did not process the hospital bed in time That she does not want her mother to be discharged before the hospital bed arrives home. --Anemia; Drop in hemoglobin from 9.6-7.6-8.1-7.6 Patient is on Coumadin for her mechanical heart valve INR: 03 therapeutic, no external evidence of bleeding Stool for occult blood negative Cardiology recommended 1 unit PRBC transfusion And discharge if stable --Acute congestive heart failure with preserved left ventricular function; Continue current antifailure medications Input output monitoring, Fluid restriction --History of mechanical aortic valve replacement; On chronic anticoagulation with Coumadin, therapeutic INR However mild drop in H&H, closely monitor Cardiology recommend to DC the patient on 2 mg of Coumadin Target INR 2.5-3.5 --History of atrial fibrillation; Rate controlled, continue current management --non-ST elevation GA; Nonspecific, elevation of troponin Cardiology evaluated no work-up at this point --Hypertension; moderate control --History of dementia; supportive care --DVT prophylaxis; patient is on Coumadin, therapeutic levels --Full CODE STATUS; We will check posttransfusion H&H and discharge the patient if stable 01/21/2021; patient had mild drop in hemoglobin Patient is on chronic anticoagulation with Coumadin for metallic heart valve Closely monitor overnight for any drop in hemoglobin any evidence of bleeding Check stool for occult blood to rule out GI bleeding 01/22/21; patient's hemoglobin dropped today from 9.6 -8.1-7.6 Card rec 1 unit of PRBC, plan to discharge this evening if stable However blood transfusion was not given as nurse reports that she could not get a consent For the blood transfusion 01/23/2021; patient's daughter refused blood transfusion, and was very upset about a nurse lying to her last night, and the case management did not process hospital bed in a georgette kam manner Does not want the patient to be discharged until the the hospital bed arrives home. We will closely monitor the patient and adjust the management as needed Case management to assist with DC planning History Interval history: I have seen and examined the patient at the bedside this morning Patient's chart and medications reviewed Hospitalist Physical - Constitutional Vitals: Temp Pulse Resp BP Pulse Ox 100.5 F H 81 20 141/62 92 01/23/21 04:18 01/23/21 04:18 01/23/21 04:18 01/23/21 04:18 01/23/21 04:18 General appearance: Present: no acute distress, well-nourished, obese (Morbidly obese) - EENT Eyes: Present: PERRL, EOM intact - Neck Neck: Present: supple, normal ROM - Respiratory Respiratory effort: normal Respiratory: bilateral: diminished, negative: rales, rhonchi, wheezing - Cardiovascular Rhythm: regular Heart Sounds: Present: S1 & S2 - Extremities Extremities: no ischemia, No edema - Abdominal General gastrointestinal: soft, non-tender, non-distended, normal bowel sounds - Integumentary Integumentary: Present: clear, warm - Psychiatric Psychiatric: appropriate mood/affect, cooperative - Neurologic Neurologic: CNII-XII intact, moves all extremities HEART Score - HEART Score Risk factors: 1-2 risk factors Troponin: Troponin T 0.053 ng/mL (0.00-0.029) H 01/20/21 13:17 Troponin: < normal limit - Critical Actions Critical Actions: 0-3 pts:0.9-1.7%risk of adverse cardiac event.Candidate for discharge Results - Labs CBC & Chem 7: 01/23/21 04:47 01/23/21 04:47 Labs: Laboratory Last Values WBC 7.0 K/mm3 (4.5-11.0) 01/23/21 04:47 RBC 2.98 M/mm3 (3.65-5.03) L 01/23/21 04:47 Hgb 7.8 gm/dl (10.1-14.3) L 01/23/21 04:47 Hct 24.2 % (30.3-42.9) L 01/23/21 04:47 MCV 81 fl (79-97) 01/23/21 04:47 MCH 26 pg (28-32) L 01/23/21 04:47 MCHC 32 % (30-34) 01/23/21 04:47 RDW 17.8 % (13.2-15.2) H 01/23/21 04:47 Plt Count 271 K/mm3 (140-440) 01/23/21 04:47 Lymph % (Auto) 12.6 % (13.4-35.0) L 01/19/21 23:25 [place] % (Auto) 9.1 % (0.0-7.3) H 01/19/21 23:25 Eos % (Auto) 1.1 % (0.0-4.3) 01/19/21 23:25 Baso % (Auto) 0.2 % (0.0-1.8) 01/19/21 23:25 Lymph # (Auto) 0.8 K/mm3 (1.2-5.4) L 01/19/21 23:25 [place] # (Auto) 0.6 K/mm3 (0.0-0.8) 01/19/21 23:25 Eos # (Auto) 0.1 K/mm3 (0.0-0.4) 01/19/21 23:25 Baso # (Auto) 0.0 K/mm3 (0.0-0.1) 01/19/21 23:25 Seg Neutrophils % 77.0 % (40.0-70.0) H 01/19/21 23:25 Seg Neutrophils # 5.0 K/mm3 (1.8-7.7) 01/19/21 23:25 PT 31.5 Sec. (12.2-14.9) H 01/23/21 04:47 INR 2.99 (0.87-1.13) H 01/23/21 04:47 APTT 52.4 Sec. (24.2-36.6) H 01/19/21 23:25 Sodium 138 mmol/L (137-145) 01/23/21 04:47 Potassium 3.5 mmol/L (3.6-5.0) L 01/23/21 04:47 Chloride 101.2 mmol/L (98-107) 01/23/21 04:47 Carbon Dioxide 28 mmol/L (22-30) 01/23/21 04:47 Anion Gap 12 mmol/L 01/23/21 04:47 BUN 22 mg/dL (7-17) H 01/23/21 04:47 Creatinine 0.8 mg/dL (0.6-1.2) 01/23/21 04:47 Estimated GFR > 60 ml/min 01/23/21 04:47 BUN/Creatinine Ratio 28 % 01/23/21 04:47 Glucose 82 mg/dL (65-100) 01/23/21 04:47 POC Glucose 103 mg/dL (70-105) 01/22/21 21:40 Calcium 8.0 mg/dL (8.4-10.2) L 01/23/21 04:47 Magnesium 1.90 mg/dL (1.7-2.3) 01/22/21 06:09 Total Bilirubin 0.70 mg/dL (0.1-1.2) 01/19/21 23:25 Direct Bilirubin 0.3 mg/dL (0-0.2) H 01/19/21 23:25 Indirect Bilirubin 0.4 mg/dL 01/19/21 23:25 AST 22 units/L (5-40) 01/19/21 23:25 ALT 13 units/L (7-56) 01/19/21 23:25 Alkaline Phosphatase 74 units/L (35-129) 01/19/21 23:25 Total Creatine Kinase 78 units/L (30-135) 01/20/21 18:15 CK-MB (CK-2) 2.6 ng/mL (0.0-4.0) 01/20/21 18:15 CK-MB (CK-2) Rel Index 3.3 (0-4) 01/20/21 18:15 Troponin T 0.053 ng/mL (0.00-0.029) H 01/20/21 13:17 NT-Pro-B Natriuret Pep 44545 pg/mL (0-900) H 01/19/21 23:25 Total Protein 7.9 g/dL (6.3-8.2) 01/19/21 23:25 Albumin 3.1 g/dL (3.9-5) L 01/19/21 23:25 Albumin/Globulin Ratio 0.6 % 01/19/21 23:25 Triglycerides 70 mg/dL (2-149) 01/19/21 23:25 Cholesterol 111 mg/dL (50-199) 01/19/21 23:25 LDL Cholesterol Direct 74 mg/dL (50-130) 01/19/21 23:25 HDL Cholesterol 31 mg/dL (40-59) L 02/23/21 23:25 Cholesterol/HDL Ratio 3.58 % 01/19/21 23:25 Blood Type A NEGATIVE 01/22/21 13:00 Antibody Screen Negative 01/22/21 13:00 Crossmatch See Detail 01/22/21 13:00 - Diagnostic Impressions Diagnostic Impressions: Echocardiogram 01/20/21 06:00 Transthoracic Echocardiogram Indication: SOB BP: 164/76 HR: 91 Conclusions *Global left ventricular systolic function is normal. *The estimated ejection fraction is 50-55%. *Abnormal left ventricular diastolic function is observed.Indeterminate *The right ventricular global systolic function is normal. *The mechanical aortic valve appears well seated with normal function. *There is mild to moderate mitral regurgitation. *The mitral regurgitant jet is eccentric. *There is mild tricuspid regurgitation. *The right ventricular systolic pressure is calculated at 32 mmHg. *There is no evidence of pulmonic regurgitation. Findings Left Ventricle: The left ventricular chamber size is normal. There is no left ventricular hypertrophy. Global left ventricular wall motion and contractility are within normal limits. Global left ventricular systolic function is normal. The estimated ejection fraction is 50-55%. Abnormal left ventricular diastolic function is observed.Indeterminate Left Atrium: The left atrial chamber size is normal. Right Ventricle: The right ventricular cavity size is normal. The right ventricular global systolic function is normal. Right Atrium: The right atrium is mildly dilated. Aortic Valve: There is trace of aortic regurgitation. The mean gradient of the aortic valve is 17.03 mmHg. The peak instantaneous gradient of the aortic valve is 32.36 mmHg. A single tilting disk aortic valve is present. The mechanical aortic valve appears well seated with normal function. Mitral Valve: Mild mitral leaflet calcification is visualized. There is mild to moderate mitral regurgitation. The mitral regurgitant jet is eccentric. Tricuspid Valve: The tricuspid valve leaflets are normal. There is mild tricuspid regurgitation. The right ventricular systolic pressure is calculated at 32 mmHg. Pulmonic Valve: The pulmonic valve is not well visualized. There is no evidence of pulmonic regurgitation. Pericardium: There is no pericardial effusion. Aorta: The aorta appears normal. Venous: The inferior vena cava appears normal in size. There is a greater than 50% respiratory change in the inferior vena cava dimension. Measurements Chambers 2D Name Value Normal Range IVSd (2D) 0.99 cm (0.6 - 1.1) LVPWd (2D) 1.13 cm (0.6 - 1.1) LVIDd (2D) 4.58 cm (3.7 - 5.6) LVIDs (2D) 3.14 cm (2 - 3.8) LV FS (2D) 31.42 % - EF Teichholz (2D) 59.37 % - Ao root diameter (2D) 2.49 cm (2 - 3.7) Volumes/Mass Name Value Normal Range LA ESV SP 4CH (A/L) 57.58 ml - LA ESV SP 2CH (A/L) 58.7 ml - LA ESV BP (A/L) 67.36 ml - LA ESV BP (A/L) index 34.37 ml/m2 - LA ESV SP 4CH (MOD) 53.69 ml - LA ESV SP 2CH (MOD) 58.32 ml - LA ESV BP (MOD) 64.04 ml - LA ESV BP (MOD) index 32.67 ml/m2 - Aortic Valve Name Value Normal Range AV Vmax 2.84 m/sec - AV VTI 50.53 cm - AV peak gradient 32.36 mmHg - AV mean gradient 17.03 mmHg - LVOT diameter 1.56 cm - LVOT Vmax 2.83 m/sec - LVOT VTI 55.85 cm - LVOT peak gradient 31.96 mmHg - LVOT mean gradient 18.74 mmHg - SV LVOT 107.19 ml - KEL (continuity Vmax) 1.91 cm2 - KEL (continuity VTI) 2.12 cm2 - Mitral Valve Name Value Normal Range MV PHT 74.12 msec - MVA (PHT) 2.97 cm2 - Tricuspid Valve Name Value Normal Range TR Vmax 2.67 m/sec - TR peak gradient 29 mmHg - RAP 3 mmHg - RVSP 32 mmHg - IVC diameter 2.29 cm (1.2 - 2.3) Pulmonic Valve/Qp:Qs Name Value Normal Range PV Vmax 0.94 m/sec - PV peak gradient 3.5 mmHg - PV acceleration time 106.57 msec - [place]/IV: Voiding Method External Female Catheter Active Medications - Current Medications Current Medications: Generic Name Dose Route Start Last Admin Trade Name Freq PRN Reason Stop Dose Admin Acetaminophen 650 mg 01/20/21 01:54 01/23/21 05:22 Acetaminophen 325 Mg Tab PO 650 mg Q4H PRN Administration Pain, Mild (1-3) Aspirin 81 mg 01/20/21 10:00 01/22/21 09:23 Aspirin 81 Mg Tab Chew PO 81 mg DAILY ROHINI Administration Citalopram Hydrobromide 20 mg 01/20/21 10:00 01/22/21 09:21 Citalopram 20 Mg Tab PO 20 mg QDAY ROHINI Administration Diltiazem HCl 240 mg 01/22/21 10:00 01/22/21 09:22 Diltiazem Cd 240 Mg Cap PO 240 mg QDAY ROHINI Administration Ferrous Sulfate 325 mg 01/22/21 10:00 01/22/21 22:21 Ferrous Sulfate 325 Mg Tab PO 325 mg BID ROHINI Administration Furosemide 20 mg 01/22/21 10:00 01/22/21 09:22 Furosemide 20 Mg Tab PO 20 mg QDAY ROHINI Administration Ondansetron HCl 4 mg 01/20/21 01:54 Ondansetron 4 Mg/2 Ml Inj IV Q8H PRN Nausea And Vomiting Warfarin Sodium 2 mg 01/22/21 17:00 01/22/21 17:13 Warfarin 1 Mg Tab PO 2 mg DAILY@1700 ROHINI Administration Nutrition/Malnutrition Assess - Dietary Evaluation Nutrition/Malnutrition Findings: Nutrition Notes Start: 01/20/21 10:38 Freq: Status: Active Protocol: Document 01/20/21 10:38 AT (Rec: 01/20/21 10:43 AT [id number]) Co-Sign 01/20/21 10:38 Nutrition Notes Need for Assessment generated from: Education Initial or Follow up Brief Note Current Diagnosis COPD,Hypertension,Heart Failure Other Pertinent Diagnosis SOB, Vascular Dementia Current Diet Low Sodium Diet Subjective/Other Information Screen for DNI. Per chart, pt' s Coumadin was d/c. Pt has mild AMS due to Dementia, but says that she is on Warfarin at home. Pt is not appropriate for education. Provided handout to pt and informed her to share with daughter. Did not have a number for daughter /construction manager, but spoke with nurse about providing handout to construction manager. #1 Nutrition Diagnosis Food and nutrition-related knowledge deficit Etiology pt on Coumadin As Evidenced by Signs and Symptoms no previous eduucation about drug-nutrient interactions Nutrition Intervention Teaching Recipient Patient Learning Readiness Confused Teaching Methods Discussion,Handout Response to Teaching Unable to comprehend Education Handouts Provided Vitamin K and Medications (for family) Barriers to Learning Age related RD phone number provided No Patient aware of follow up options No Revisit per MD consult or patient Sign Off request:
[2021-01-23] MEDS ORDERED: POTASSIUM CHLORIDE ER 10 MEQ TAB PO NR (08:32)
[2021-01-23] MEDS: dilTIAZem CD 240 MG CAP PO SCH (10:13)
[2021-01-23] MEDS: CITALOPRAM 20 MG TAB PO SCH (10:13)
[2021-01-23] MEDS: FERROUS SULFATE 325 MG TAB PO SCH ×2 (10:13→22:16)
[2021-01-23] MEDS: FUROSEMIDE 20 MG TAB PO SCH (10:13)
[2021-01-23] MEDS: ASPIRIN 81 MG TAB CHEW PO SCH (10:14)
[2021-01-23] MEDS: WARFARIN 1 MG TAB PO SCH (17:24)
--- NOTE | 2021-01-23 19:31 | Event Note ---
Date: 01/23/21 Patient's daughter refused to give consent for the blood transfusion Since daughter was very unhappy and angry saying that one of the nurses in the night light to her about blood transfusion And also is upset about case management not processing the hospital bed in a timely manner And she wants her mother/ the patient to be discharged only after the hospital bed arrives home. She was upset about the caregivers the nurses the physicians and the case consultant She is upset about the care and was very verbal. Patient's nurse and the charge nurse are aware
[2021-01-24 07:25] LABS: INR 3.17 (0.87-1.13)
[2021-01-24] MEDS: ASPIRIN 81 MG TAB CHEW PO SCH (09:22)
[2021-01-24] MEDS: FERROUS SULFATE 325 MG TAB PO SCH ×2 (09:22→21:36)
[2021-01-24] MEDS: CITALOPRAM 20 MG TAB PO SCH (09:22)
[2021-01-24] MEDS: FUROSEMIDE 20 MG TAB PO SCH (09:22)
[2021-01-24] MEDS: dilTIAZem CD 240 MG CAP PO SCH (09:22)
--- NOTE | 2021-01-24 11:38 | Progress Note ---
Assessment and Plan Assessment and plan: --Anemia; Drop in hemoglobin from 9.6-7.6-8.1-7.6 Patient is on Coumadin for her mechanical heart valve INR: 03 therapeutic, no external evidence of bleeding Stool for occult blood negative Cardiology recommended 1 unit PRBC transfusion Lateral discharge, patient's daughter refused blood transfusion --Acute congestive heart failure with preserved left ventricular function; Continue current antifailure medications Input output monitoring, Fluid restriction --History of mechanical aortic valve replacement; On chronic anticoagulation with Coumadin, therapeutic INR However mild drop in H&H, closely monitor Cardiology recommend to DC the patient on 2 mg of Coumadin Target INR 2.5-3.5 --History of atrial fibrillation; Rate controlled, continue current management --non-ST elevation DE; Nonspecific, elevation of troponin Cardiology evaluated no work-up at this point --Hypertension; moderate control --History of dementia; supportive care --DVT prophylaxis; patient is on Coumadin, therapeutic levels --Full CODE STATUS; We will check posttransfusion H&H and discharge the patient if stable 01/21/2021; patient had mild drop in hemoglobin Patient is on chronic anticoagulation with Coumadin for metallic heart valve Closely monitor overnight for any drop in hemoglobin any evidence of bleeding Check stool for occult blood to rule out GI bleeding 01/22/21; patient's hemoglobin dropped today from 9.6 -8.1-7.6 Card rec 1 unit of PRBC, plan to discharge this evening if stable However blood transfusion was not given as nurse reports that she could not get a consent For the blood transfusion 01/23/2021; patient's daughter refused blood transfusion, and was very upset about a nurse lying to her last night, and the case management did not process hospital bed in a timely manner Does not want the patient to be discharged until the the hospital bed arrives home. We will closely monitor the patient and adjust the management as needed 01/24; patient feels better, patient's daughter at numerous questions answered all of them Will check H&H and PT/INR tomorrow if stable will be discharging home Case management will assist with DC planning History Interval history: I have seen and examined the patient at the bedside Patient's chart and medications reviewed Patient feels better no new complaints Vital signs reviewed Hospitalist Physical - Constitutional Vitals: Temp Pulse Resp BP Pulse Ox 99.1 F 74 20 120/60 94 01/24/21 09:15 01/24/21 09:15 01/24/21 10:00 01/24/21 09:22 01/24/21 10:00 General appearance: Present: no acute distress, well-nourished, obese (Morbidly obese) - EENT Eyes: Present: PERRL, EOM intact - Neck Neck: Present: supple, normal ROM - Respiratory Respiratory effort: normal Respiratory: bilateral: diminished, negative: rales, rhonchi, wheezing - Cardiovascular Rhythm: regular Heart Sounds: Present: S1 & S2 - Extremities Extremities: no ischemia, No edema - Abdominal General gastrointestinal: soft, non-tender, non-distended, normal bowel sounds - Integumentary Integumentary: Present: clear, warm - Psychiatric Psychiatric: appropriate mood/affect, cooperative - Neurologic Neurologic: CNII-XII intact, moves all extremities HEART Score - HEART Score Risk factors: 1-2 risk factors Troponin: Troponin T 0.053 ng/mL (0.00-0.029) H 01/20/21 13:17 Troponin: < normal limit - Critical Actions Critical Actions: 0-3 pts:0.9-1.7%risk of adverse cardiac event.Candidate for discharge Results - Labs CBC & Chem 7: 01/23/21 04:47 01/23/21 04:47 Labs: Laboratory Last Values WBC 7.0 K/mm3 (4.5-11.0) 01/23/21 04:47 RBC 2.98 M/mm3 (3.65-5.03) L 01/23/21 04:47 Hgb 7.8 gm/dl (10.1-14.3) L 01/23/21 04:47 Hct 24.2 % (30.3-42.9) L 01/23/21 04:47 MCV 81 fl (79-97) 01/23/21 04:47 MCH 26 pg (28-32) L 01/23/21 04:47 MCHC 32 % (30-34) 01/23/21 04:47 RDW 17.8 % (13.2-15.2) H 01/23/21 04:47 Plt Count 271 K/mm3 (140-440) 01/23/21 04:47 Lymph % (Auto) 12.6 % (13.4-35.0) L 01/19/21 23:25 Mcclain % (Auto) 9.1 % (0.0-7.3) H 01/19/21 23:25 Eos % (Auto) 1.1 % (0.0-4.3) 01/19/21 23:25 Baso % (Auto) 0.2 % (0.0-1.8) 01/19/21 23:25 Lymph # (Auto) 0.8 K/mm3 (1.2-5.4) L 01/19/21 23:25 Mcclain # (Auto) 0.6 K/mm3 (0.0-0.8) 01/19/21 23:25 Eos # (Auto) 0.1 K/mm3 (0.0-0.4) 01/19/21 23:25 Baso # (Auto) 0.0 K/mm3 (0.0-0.1) 01/19/21 23:25 Seg Neutrophils % 77.0 % (40.0-70.0) H 01/19/21 23:25 Seg Neutrophils # 5.0 K/mm3 (1.8-7.7) 01/19/21 23:25 PT 33.0 Sec. (12.2-14.9) H 01/24/21 05:27 INR 3.17 (0.87-1.13) H 01/24/21 05:27 APTT 52.4 Sec. (24.2-36.6) H 01/19/21 23:25 Sodium 138 mmol/L (137-145) 01/23/21 04:47 Potassium 3.5 mmol/L (3.6-5.0) L 01/23/21 04:47 Chloride 101.2 mmol/L (98-107) 01/23/21 04:47 Carbon Dioxide 28 mmol/L (22-30) 01/23/21 04:47 Anion Gap 12 mmol/L 01/23/21 04:47 BUN 22 mg/dL (7-17) H 01/23/21 04:47 Creatinine 0.8 mg/dL (0.6-1.2) 01/23/21 04:47 Estimated GFR > 60 ml/min 01/23/21 04:47 BUN/Creatinine Ratio 28 % 01/23/21 04:47 Glucose 82 mg/dL (65-100) 01/23/21 04:47 POC Glucose 94 mg/dL (70-105) 01/23/21 22:02 Calcium 8.0 mg/dL (8.4-10.2) L 01/23/21 04:47 Magnesium 1.90 mg/dL (1.7-2.3) 01/22/21 06:09 Total Bilirubin 0.70 mg/dL (0.1-1.2) 01/19/21 23:25 Direct Bilirubin 0.3 mg/dL (0-0.2) H 01/19/21 23:25 Indirect Bilirubin 0.4 mg/dL 01/19/21 23:25 AST 22 units/L (5-40) 01/19/21 23:25 ALT 13 units/L (7-56) 01/19/21 23:25 Alkaline Phosphatase 74 units/L (35-129) 01/19/21 23:25 Total Creatine Kinase 78 units/L (30-135) 01/20/21 18:15 CK-MB (CK-2) 2.6 ng/mL (0.0-4.0) 01/20/21 18:15 CK-MB (CK-2) Rel Index 3.3 (0-4) 01/20/21 18:15 Troponin T 0.053 ng/mL (0.00-0.029) H 01/20/21 13:17 NT-Pro-B Natriuret Pep 84621 pg/mL (0-900) H 01/19/21 23:25 Total Protein 7.9 g/dL (6.3-8.2) 01/19/21 23:25 Albumin 3.1 g/dL (3.9-5) L 01/19/21 23:25 Albumin/Globulin Ratio 0.6 % 01/19/21 23:25 Triglycerides 70 mg/dL (2-149) 01/19/21 23:25 Cholesterol 111 mg/dL (50-199) 01/19/21 23:25 LDL Cholesterol Direct 74 mg/dL (50-130) 01/19/21 23:25 HDL Cholesterol 31 mg/dL (40-59) L 01/19/21 23:25 Cholesterol/HDL Ratio 3.58 % 01/19/21 23:25 Blood Type A NEGATIVE 01/22/21 13:00 Antibody Screen Negative 01/22/21 13:00 Crossmatch See Detail 01/22/21 13:00 - Diagnostic Impressions Diagnostic Impressions: Echocardiogram 01/20/21 06:00 Transthoracic Echocardiogram Indication: SOB BP: 164/76 HR: 91 Conclusions *Global left ventricular systolic function is normal. *The estimated ejection fraction is 50-55%. *Abnormal left ventricular diastolic function is observed.Indeterminate *The right ventricular global systolic function is normal. *The mechanical aortic valve appears well seated with normal function. *There is mild to moderate mitral regurgitation. *The mitral regurgitant jet is eccentric. *There is mild tricuspid regurgitation. *The right ventricular systolic pressure is calculated at 32 mmHg. *There is no evidence of pulmonic regurgitation. Findings Left Ventricle: The left ventricular chamber size is normal. There is no left ventricular hypertrophy. Global left ventricular wall motion and contractility are within normal limits. Global left ventricular systolic function is normal. The estimated ejection fraction is 50-55%. Abnormal left ventricular diastolic function is observed.Indeterminate Left Atrium: The left atrial chamber size is normal. Right Ventricle: The right ventricular cavity size is normal. The right ventricular global systolic function is normal. Right Atrium: The right atrium is mildly dilated. Aortic Valve: There is trace of aortic regurgitation. The mean gradient of the aortic valve is 17.03 mmHg. The peak instantaneous gradient of the aortic valve is 32.36 mmHg. A single tilting disk aortic valve is present. The mechanical aortic valve appears well seated with normal function. Mitral Valve: Mild mitral leaflet calcification is visualized. There is mild to moderate mitral regurgitation. The mitral regurgitant jet is eccentric. Tricuspid Valve: The tricuspid valve leaflets are normal. There is mild tricuspid regurgitation. The right ventricular systolic pressure is calculated at 32 mmHg. Pulmonic Valve: The pulmonic valve is not well visualized. There is no evidence of pulmonic regurgitation. Pericardium: There is no pericardial effusion. Aorta: The aorta appears normal. Venous: The inferior vena cava appears normal in size. There is a greater than 50% respiratory change in the inferior vena cava dimension. Measurements Chambers 2D Name Value Normal Range IVSd (2D) 0.99 cm (0.6 - 1.1) LVPWd (2D) 1.13 cm (0.6 - 1.1) LVIDd (2D) 4.58 cm (3.7 - 5.6) LVIDs (2D) 3.14 cm (2 - 3.8) LV FS (2D) 31.42 % - EF Teichholz (2D) 59.37 % - Ao root diameter (2D) 2.49 cm (2 - 3.7) Volumes/Mass Name Value Normal Range LA ESV SP 4CH (A/L) 57.58 ml - LA ESV SP 2CH (A/L) 58.7 ml - LA ESV BP (A/L) 67.36 ml - LA ESV BP (A/L) index 34.37 ml/m2 - LA ESV SP 4CH (MOD) 53.69 ml - LA ESV SP 2CH (MOD) 58.32 ml - LA ESV BP (MOD) 64.04 ml - LA ESV BP (MOD) index 32.67 ml/m2 - Aortic Valve Name Value Normal Range AV Vmax 2.84 m/sec - AV VTI 50.53 cm - AV peak gradient 32.36 mmHg - AV mean gradient 17.03 mmHg - LVOT diameter 1.56 cm - LVOT Vmax 2.83 m/sec - LVOT VTI 55.85 cm - LVOT peak gradient 31.96 mmHg - LVOT mean gradient 18.74 mmHg - SV LVOT 107.19 ml - KEL (continuity Vmax) 1.91 cm2 - KEL (continuity VTI) 2.12 cm2 - Mitral Valve Name Value Normal Range MV PHT 74.12 msec - MVA (PHT) 2.97 cm2 - Tricuspid Valve Name Value Normal Range TR Vmax 2.67 m/sec - TR peak gradient 29 mmHg - RAP 3 mmHg - RVSP 32 mmHg - IVC diameter 2.29 cm (1.2 - 2.3) Pulmonic Valve/Qp:Qs Name Value Normal Range PV Vmax 0.94 m/sec - PV peak gradient 3.5 mmHg - PV acceleration time 106.57 msec - [place]/IV: Voiding Method External Female Catheter Active Medications - Current Medications Current Medications: Generic Name Dose Route Start Last Admin Trade Name Freq PRN Reason Stop Dose Admin Acetaminophen 650 mg 01/20/21 01:54 01/23/21 22:15 Acetaminophen 325 Mg Tab PO 650 mg Q4H PRN Administration Pain, Mild (1-3) Aspirin 81 mg 01/20/21 10:00 01/24/21 09:22 Aspirin 81 Mg Tab Chew PO 81 mg DAILY ROHINI Administration Citalopram Hydrobromide 20 mg 01/20/21 10:00 01/24/21 09:22 Citalopram 20 Mg Tab PO 20 mg QDAY ROHINI Administration Diltiazem HCl 240 mg 01/22/21 10:00 01/24/21 09:22 Diltiazem Cd 240 Mg Cap PO 240 mg QDAY ROHINI Administration Ferrous Sulfate 325 mg 01/22/21 10:00 01/24/21 09:22 Ferrous Sulfate 325 Mg Tab PO 325 mg BID ROHINI Administration Furosemide 20 mg 01/22/21 10:00 01/24/21 09:22 Furosemide 20 Mg Tab PO 20 mg QDAY ROHINI Administration Ondansetron HCl 4 mg 01/20/21 01:54 Ondansetron 4 Mg/2 Ml Inj IV Q8H PRN Nausea And Vomiting Warfarin Sodium 2 mg 01/22/21 17:00 01/23/21 17:24 Warfarin 1 Mg Tab PO 2 mg DAILY@1700 ROHINI Administration Nutrition/Malnutrition Assess - Dietary Evaluation Nutrition/Malnutrition Findings: Nutrition Notes Start: 01/20/21 10:38 Freq: Status: Active Protocol: Document 01/20/21 10:38 AT (Rec: 01/20/21 10:43 AT [id number]) Co-Sign 01/20/21 10:38 Nutrition Notes Need for Assessment generated from: Education Initial or Follow up Brief Note Current Diagnosis COPD,Hypertension,Heart Failure Other Pertinent Diagnosis SOB, Vascular Dementia Current Diet Low Sodium Diet Subjective/Other Information Screen for DNI. Per chart, pt' s Coumadin was d/c. Pt has mild AMS due to Dementia, but says that she is on Warfarin at home. Pt is not appropriate for education. Provided handout to pt and informed her to share with daughter. Did not have a number for daughter /employee benefits coordinator, but spoke with nurse about providing handout to employee benefits coordinator. #1 Nutrition Diagnosis Food and nutrition-related knowledge deficit Etiology pt on Coumadin As Evidenced by Signs and Symptoms no previous eduucation about drug-nutrient interactions Nutrition Intervention Teaching Recipient Patient Learning Readiness Confused Teaching Methods Discussion,Handout Response to Teaching Unable to comprehend Education Handouts Provided Vitamin K and Medications (for family) Barriers to Learning Age related RD phone number provided No Patient aware of follow up options No Revisit per MD consult or patient Sign Off request:
[2021-01-24] MEDS: WARFARIN 1 MG TAB PO SCH (17:29)
[2021-01-24] MEDS: ACETAMINOPHEN 325 MG TAB PO PRN (18:43)
[2021-01-25 05:49] LABS: Hematocrit 26.1 % (30.3-42.9); Hemoglobin 8.1 gm/dl (10.1-14.3)
[2021-01-25 06:01] LABS: BUN/Creatinine Ratio 33; Blood Urea Nitrogen 23 mg/dL (7-17); Calcium 7.9 mg/dL (8.4-10.2); Hemolysis Index 7
[2021-01-25 06:05] LABS: INR 2.48 (0.87-1.13)
--- NOTE | 2021-01-25 08:40 | Discharge Summary ---
Providers - Providers Date of Admission: 01/20/21 00:51 Date of discharge: 01/25/21 Attending physician: BEAU WINCHESTER 01/20/21 02:55 Consult to Physician [CONS] Routine Comment: Consulting Provider: ROGER ABREU Physician Instructions: Reason For Exam: CHF EXACERBATION WITH ELEVATED TROPONIN LEVELS 01/21/21 14:18 Occupational Therapy Evaluate and Treat [CONS] Routine Comment: Debility Reason For Exam: eval and treat 01/22/21 10:40 Physical Therapy Evaluation and Treat [CONS] Routine Comment: Reason For Exam: debility Mode of Transport?: Wheelchair Primary care physician: HEAD OF DATA Hospitalization Condition: Stable Hospital course: Discharge diagnosis: --Anemia; Drop in hemoglobin from 9.6-7.6-8.1-7.6 Patient is on Coumadin for her mechanical heart valve INR: 03 therapeutic, no external evidence of bleeding Stool for occult blood negative Cardiology recommended 1 unit PRBC transfusion Lateral discharge, patient's daughter refused blood transfusion --Acute congestive heart failure with preserved left ventricular function; Continue current antifailure medications Input output monitoring, Fluid restriction --History of mechanical aortic valve replacement; On chronic anticoagulation with Coumadin, therapeutic INR However mild drop in H&H, closely monitor Cardiology recommend to DC the patient on 2 mg of Coumadin Target INR 2.5-3.5 --History of atrial fibrillation; Rate controlled, continue current management --non-ST elevation [place]; Nonspecific, elevation of troponin Cardiology evaluated no work-up at this point --Hypertension; moderate control --History of dementia; supportive care --DVT prophylaxis; patient is on Coumadin, therapeutic levels Disposition: [id number] HOME [facility] Time spent for discharge: 35 min Core Measure Documentation - Palliative Care Palliative Care/ Comfort Measures: Not Applicable - Core Measures Any of the following diagnoses?: none Exam - Constitutional Vitals: Temp Pulse Resp BP Pulse Ox 98.6 F 67 20 137/67 96 01/25/21 04:42 01/25/21 04:42 01/25/21 04:42 01/25/21 04:42 01/25/21 04:42 General appearance: Present: no acute distress, well-nourished - EENT Eyes: Present: PERRL, EOM intact - Neck Neck: Present: supple, normal ROM - Respiratory Respiratory effort: normal Respiratory: bilateral: diminished, negative: rales, rhonchi, wheezing - Cardiovascular Rhythm: regular Heart Sounds: Present: S1 & S2 - Extremities Extremities: no ischemia, No edema - Abdominal General gastrointestinal: Present: soft, non-tender, non-distended, normal bowel sounds - Integumentary Integumentary: Present: clear, warm - Musculoskeletal Musculoskeletal: strength equal bilaterally - Psychiatric Psychiatric: appropriate mood/affect, cooperative - Neurologic Neurologic: moves all extremities Plan Activity: advance as tolerated, fall precautions Diet: other (cardiac diet) Additional Instructions: Advised to follow with general care director river restoration per schedule. Periodic monitoring of INR at PMD/director river restoration office,. therapeutic goal of INR between 2.5-3.5. If you notice any bleeding, contact MD or go to emergency room. If you have worsening symptoms contact MD or go to emergency room Follow up with: PRIMARY CARE,MD [Primary Care Provider] - 3-5 Days Forms: Warfarin Discharge Instruction Prescriptions: [id number] CD [Cardizem CD] 240 mg PO QDAY #30 capsule Warfarin [Coumadin] 2 mg PO QHS #30 tablet Ferrous Sulfate [Feosol 325 MG tab] 325 mg PO BID #60 tablet Furosemide [Lasix TAB] 20 mg PO QDAY #30 tablet
[2021-01-25] MEDS: ACETAMINOPHEN 325 MG TAB PO PRN ×2 (09:51→17:35)
[2021-01-25] MEDS: ASPIRIN 81 MG TAB CHEW PO SCH (09:51)
[2021-01-25] MEDS: FUROSEMIDE 20 MG TAB PO SCH (09:51)
[2021-01-25] MEDS: CITALOPRAM 20 MG TAB PO SCH (09:51)
[2021-01-25] MEDS: FERROUS SULFATE 325 MG TAB PO SCH ×2 (09:51→21:41)
[2021-01-25] MEDS: dilTIAZem CD 240 MG CAP PO SCH (09:53)
[2021-01-25] MEDS: WARFARIN 1 MG TAB PO SCH (17:34)
--- NOTE | 2021-01-25 20:54 | Progress Note ---
Assessment and Plan Assessment and plan: --Anemia; Drop in hemoglobin from 9.6-7.6-8.1-7.6-8.1 Patient is on Coumadin for her mechanical heart valve INR: 03 therapeutic, no external evidence of bleeding Stool for occult blood negative Cardiology recommended 1 unit PRBC transfusion Lateral discharge, patient's daughter refused blood transfusion --Acute congestive heart failure with preserved left ventricular function; Continue current antifailure medications Input output monitoring, Fluid restriction --History of mechanical aortic valve replacement; On chronic anticoagulation with Coumadin, therapeutic INR However mild drop in H&H, closely monitor Cardiology recommend to DC the patient on 2 mg of Coumadin Target INR 2.5-3.5 --History of atrial fibrillation; Rate controlled, continue current management --non-ST elevation ID; Nonspecific, elevation of troponin Cardiology evaluated no work-up at this point --Hypertension; moderate control --History of dementia; supportive care --DVT prophylaxis; patient is on Coumadin, therapeutic levels --Full CODE STATUS; Disposition; patient is clinically stable for discharge DC planning per case management Brief history: 70-year-old female with past medical history of hypertension, dementia and aortic valve disease who presented to the emergency room with complaint of swelling in both breasts, however patient's daughter said that patient has been having shortness of breath. Denies history of cough according to the patient but no history of ankle edema, chest pain, fever or chills 01/21; patient had mild drop in hemoglobin Patient is on chronic anticoagulation with Coumadin for metallic heart valve Closely monitor overnight for any drop in hemoglobin any evidence of bleeding Check stool for occult blood to rule out GI bleeding 01/22; patient's hemoglobin dropped today from 9.6 -8.1-7.6 Card rec 1 unit of PRBC, plan to discharge this evening if stable However blood transfusion was not given as nurse reports that she could not get a consent For the blood transfusion 01/23; patient's daughter refused blood transfusion, and was very upset about a nurse lying to her last night, and the case management did not process hospital bed in a timely manner Does not want the patient to be discharged until the the hospital bed arrives home. We will closely monitor the patient and adjust the management as needed 01/24; patient feels better, patient's daughter at numerous questions answered all of them Will check H&H and PT/INR tomorrow if stable will be discharging home Case management will assist with DC planning 01/25; patient is hemodynamically and clinically stable for discharge Awaiting for DME, case management for discharge planning Disposition; DC when cleared by CM History Interval history: I have seen and examined the patient at the bedside Patient's chart and medications reviewed No new events reported by the nursing staff Vital signs noted Hospitalist Physical - Constitutional Vitals: Temp Pulse Resp BP Pulse Ox 98.5 F 75 18 109/54 95 01/25/21 15:15 01/25/21 17:00 01/25/21 15:15 01/25/21 15:15 01/25/21 15:15 General appearance: Present: no acute distress, well-nourished - EENT Eyes: Present: PERRL, EOM intact - Neck Neck: Present: supple, normal ROM - Respiratory Respiratory effort: normal Respiratory: bilateral: diminished, negative: rales, rhonchi, wheezing - Cardiovascular Rhythm: regular Heart Sounds: Present: S1 & S2 - Extremities Extremities: no ischemia, No edema - Abdominal General gastrointestinal: soft, non-tender, non-distended, normal bowel sounds - Integumentary Integumentary: Present: clear, warm - Psychiatric Psychiatric: appropriate mood/affect, cooperative - Neurologic Neurologic: CNII-XII intact, moves all extremities HEART Score - HEART Score Risk factors: 1-2 risk factors Troponin: Troponin T 0.053 ng/mL (0.00-0.029) H 01/20/21 13:17 Troponin: < normal limit - Critical Actions Critical Actions: 0-3 pts:0.9-1.7%risk of adverse cardiac event.Candidate for discharge Results - Labs CBC & Chem 7: 01/25/21 04:57 01/25/21 04:57 Labs: Laboratory Last Values WBC 7.0 K/mm3 (4.5-11.0) 01/23/21 04:47 RBC 2.98 M/mm3 (3.65-5.03) L 01/23/21 04:47 Hgb 8.1 gm/dl (10.1-14.3) L 01/25/21 04:57 Hct 26.1 % (30.3-42.9) L 01/25/21 04:57 MCV 81 fl (79-97) 01/23/21 04:47 MCH 26 pg (28-32) L 01/23/21 04:47 MCHC 32 % (30-34) 01/23/21 04:47 RDW 17.8 % (13.2-15.2) H 01/23/21 04:47 Plt Count 271 K/mm3 (140-440) 01/23/21 04:47 Lymph % (Auto) 12.6 % (13.4-35.0) L 01/19/21 23:25 [place] % (Auto) 9.1 % (0.0-7.3) H 01/19/21 23:25 Eos % (Auto) 1.1 % (0.0-4.3) 01/19/21 23:25 Baso % (Auto) 0.2 % (0.0-1.8) 01/19/21 23:25 Lymph # (Auto) 0.8 K/mm3 (1.2-5.4) L 01/19/21 23:25 [place] # (Auto) 0.6 K/mm3 (0.0-0.8) 01/19/21 23:25 Eos # (Auto) 0.1 K/mm3 (0.0-0.4) 01/19/21 23:25 Baso # (Auto) 0.0 K/mm3 (0.0-0.1) 01/19/21 23:25 Seg Neutrophils % 77.0 % (40.0-70.0) H 01/19/21 23:25 Seg Neutrophils # 5.0 K/mm3 (1.8-7.7) 01/19/21 23:25 PT 27.1 Sec. (12.2-14.9) H 01/25/21 04:57 INR 2.48 (0.87-1.13) H 01/25/21 04:57 APTT 52.4 Sec. (24.2-36.6) H 01/19/21 23:25 Sodium 137 mmol/L (137-145) 01/25/21 04:57 Potassium 3.9 mmol/L (3.6-5.0) 01/25/21 04:57 Chloride 102.1 mmol/L (98-107) 01/25/21 04:57 Carbon Dioxide 30 mmol/L (22-30) 01/25/21 04:57 Anion Gap 9 mmol/L 01/25/21 04:57 BUN 23 mg/dL (7-17) H 01/25/21 04:57 Creatinine 0.7 mg/dL (0.6-1.2) 01/25/21 04:57 Estimated GFR > 60 ml/min 01/25/21 04:57 BUN/Creatinine Ratio 33 % 01/25/21 04:57 Glucose 84 mg/dL (65-100) 01/25/21 04:57 POC Glucose 94 mg/dL (70-105) 01/23/21 22:02 Calcium 7.9 mg/dL (8.4-10.2) L 01/25/21 04:57 Magnesium 2.10 mg/dL (1.7-2.3) 01/25/21 04:57 Total Bilirubin 0.70 mg/dL (0.1-1.2) 01/19/21 23:25 Direct Bilirubin 0.3 mg/dL (0-0.2) H 01/19/21 23:25 Indirect Bilirubin 0.4 mg/dL 01/19/21 23:25 AST 22 units/L (5-40) 01/19/21 23:25 ALT 13 units/L (7-56) 01/19/21 23:25 Alkaline Phosphatase 74 units/L (35-129) 01/19/21 23:25 Total Creatine Kinase 78 units/L (30-135) 01/20/21 18:15 CK-MB (CK-2) 2.6 ng/mL (0.0-4.0) 01/20/21 18:15 CK-MB (CK-2) Rel Index 3.3 (0-4) 01/20/21 18:15 Troponin T 0.053 ng/mL (0.00-0.029) H 01/20/21 13:17 NT-Pro-B Natriuret Pep 23754 pg/mL (0-900) H 01/19/21 23:25 Total Protein 7.9 g/dL (6.3-8.2) 01/19/21 23:25 Albumin 3.1 g/dL (3.9-5) L 01/19/21 23:25 Albumin/Globulin Ratio 0.6 % 01/19/21 23:25 Triglycerides 70 mg/dL (2-149) 01/19/21 23:25 Cholesterol 111 mg/dL (50-199) 01/19/21 23:25 LDL Cholesterol Direct 74 mg/dL (50-130) 01/19/21 23:25 HDL Cholesterol 31 mg/dL (40-59) L 01/19/21 23:25 Cholesterol/HDL Ratio 3.58 % 01/19/21 23:25 Blood Type A NEGATIVE 01/22/21 13:00 Antibody Screen Negative 01/22/21 13:00 Crossmatch See Detail 01/22/21 13:00 - Diagnostic Impressions Diagnostic Impressions: Echocardiogram 01/20/21 06:00 Transthoracic Echocardiogram Indication: SOB BP: 164/76 HR: 91 Conclusions *Global left ventricular systolic function is normal. *The estimated ejection fraction is 50-55%. *Abnormal left ventricular diastolic function is observed.Indeterminate *The right ventricular global systolic function is normal. *The mechanical aortic valve appears well seated with normal function. *There is mild to moderate mitral regurgitation. *The mitral regurgitant jet is eccentric. *There is mild tricuspid regurgitation. *The right ventricular systolic pressure is calculated at 32 mmHg. *There is no evidence of pulmonic regurgitation. Findings Left Ventricle: The left ventricular chamber size is normal. There is no left ventricular hypertrophy. Global left ventricular wall motion and contractility are within normal limits. Global left ventricular systolic function is normal. The estimated ejection fraction is 50-55%. Abnormal left ventricular diastolic function is observed.Indeterminate Left Atrium: The left atrial chamber size is normal. Right Ventricle: The right ventricular cavity size is normal. The right ventricular global systolic function is normal. Right Atrium: The right atrium is mildly dilated. Aortic Valve: There is trace of aortic regurgitation. The mean gradient of the aortic valve is 17.03 mmHg. The peak instantaneous gradient of the aortic valve is 32.36 mmHg. A single tilting disk aortic valve is present. The mechanical aortic valve appears well seated with normal function. Mitral Valve: Mild mitral leaflet calcification is visualized. There is mild to moderate mitral regurgitation. The mitral regurgitant jet is eccentric. Tricuspid Valve: The tricuspid valve leaflets are normal. There is mild tricuspid regurgitation. The right ventricular systolic pressure is calculated at 32 mmHg. Pulmonic Valve: The pulmonic valve is not well visualized. There is no evidence of pulmonic regurgitation. Pericardium: There is no pericardial effusion. Aorta: The aorta appears normal. Venous: The inferior vena cava appears normal in size. There is a greater than 50% respiratory change in the inferior vena cava dimension. Measurements Chambers 2D Name Value Normal Range IVSd (2D) 0.99 cm (0.6 - 1.1) LVPWd (2D) 1.13 cm (0.6 - 1.1) LVIDd (2D) 4.58 cm (3.7 - 5.6) LVIDs (2D) 3.14 cm (2 - 3.8) LV FS (2D) 31.42 % - EF Teichholz (2D) 59.37 % - Ao root diameter (2D) 2.49 cm (2 - 3.7) Volumes/Mass Name Value Normal Range LA ESV SP 4CH (A/L) 57.58 ml - LA ESV SP 2CH (A/L) 58.7 ml - LA ESV BP (A/L) 67.36 ml - LA ESV BP (A/L) index 34.37 ml/m2 - LA ESV SP 4CH (MOD) 53.69 ml - LA ESV SP 2CH (MOD) 58.32 ml - LA ESV BP (MOD) 64.04 ml - LA ESV BP (MOD) index 32.67 ml/m2 - Aortic Valve Name Value Normal Range AV Vmax 2.84 m/sec - AV VTI 50.53 cm - AV peak gradient 32.36 mmHg - AV mean gradient 17.03 mmHg - LVOT diameter 1.56 cm - LVOT Vmax 2.83 m/sec - LVOT VTI 55.85 cm - LVOT peak gradient 31.96 mmHg - LVOT mean gradient 18.74 mmHg - SV LVOT 107.19 ml - KEL (continuity Vmax) 1.91 cm2 - KEL (continuity VTI) 2.12 cm2 - Mitral Valve Name Value Normal Range MV PHT 74.12 msec - MVA (PHT) 2.97 cm2 - Tricuspid Valve Name Value Normal Range TR Vmax 2.67 m/sec - TR peak gradient 29 mmHg - RAP 3 mmHg - RVSP 32 mmHg - IVC diameter 2.29 cm (1.2 - 2.3) Pulmonic Valve/Qp:Qs Name Value Normal Range PV Vmax 0.94 m/sec - PV peak gradient 3.5 mmHg - PV acceleration time 106.57 msec - [place]/IV: Voiding Method External Female Catheter Active Medications - Current Medications Current Medications: Generic Name Dose Route Start Last Admin Trade Name Freq PRN Reason Stop Dose Admin Acetaminophen 650 mg 01/20/21 01:54 01/25/21 17:35 Acetaminophen 325 Mg Tab PO 650 mg Q4H PRN Administration Pain, Mild (1-3) Aspirin 81 mg 01/20/21 10:00 01/25/21 09:51 Aspirin 81 Mg Tab Chew PO 81 mg DAILY ROHINI Administration Citalopram Hydrobromide 20 mg 01/20/21 10:00 01/25/21 09:51 Citalopram 20 Mg Tab PO 20 mg QDAY ROHINI Administration Diltiazem HCl 240 mg 01/22/21 10:00 01/25/21 09:53 Diltiazem Cd 240 Mg Cap PO 240 mg QDAY ROHINI Administration Ferrous Sulfate 325 mg 01/22/21 10:00 01/25/21 09:51 Ferrous Sulfate 325 Mg Tab PO 325 mg BID ROHINI Administration Furosemide 20 mg 01/22/21 10:00 01/25/21 09:51 Furosemide 20 Mg Tab PO 20 mg QDAY ROHINI Administration Ondansetron HCl 4 mg 01/20/21 01:54 Ondansetron 4 Mg/2 Ml Inj IV Q8H PRN Nausea And Vomiting Warfarin Sodium 2 mg 01/22/21 17:00 01/25/21 17:34 Warfarin 1 Mg Tab PO 2 mg DAILY@1700 ROHINI Administration Nutrition/Malnutrition Assess - Dietary Evaluation Nutrition/Malnutrition Findings: Nutrition Notes Start: 01/20/21 10 :38 Freq: Status: Active Protocol: Document 01/25/21 09:38 CW (Rec: 01/25/21 09:40 CW [id number]) Nutrition Notes Initial or Follow up Brief Note Current Diagnosis COPD,Hypertension,Heart Failure Other Pertinent Diagnosis SOB, Vascular Dementia Current Diet Low Sodium Diet Pertinent Medications Coumadin Subjective/Other Information Screen for DNI. Pt has AMS r/t dementia. Pt was provided with coumadin handout to share with responsible libertarian, daughter. Pt understands need to share information with family and nurse was alerted. Pt provided without another copy of handput d/t misplacement of original handout. Nutrition Intervention Teaching Recipient Patient Teaching Methods Handout Response to Teaching Unable to comprehend Barriers to Learning Age related RD phone number provided Yes Patient aware of follow up options Yes Anticipated Discharge Needs: Low sodium diet and Consistent Vitamin K diet when taking Coumadin Revisit per MD consult or patient Sign Off request:
[2021-01-26 08:59] LABS: INR 2.31 (0.87-1.13)
[2021-01-26 09:39] VITALS: BP 149/72
[2021-01-26] MEDS: ASPIRIN 81 MG TAB CHEW PO SCH (10:16)
[2021-01-26] MEDS: FERROUS SULFATE 325 MG TAB PO SCH (10:16)
[2021-01-26] MEDS: CITALOPRAM 20 MG TAB PO SCH (10:16)
[2021-01-26] MEDS: dilTIAZem CD 240 MG CAP PO SCH (10:16)
[2021-01-26] MEDS: FUROSEMIDE 20 MG TAB PO SCH (10:16)
[2021-01-26] MEDS ORDERED: WARFARIN 2.5 MG TAB PO SCH (17:00)
--- NOTE | 2021-01-26 18:25 | Discharge Summary ---
Providers - Providers Date of Admission: 01/20/21 00:51 Date of discharge: 01/26/21 Attending physician: RM JAIN 01/20/21 02:55 Consult to Physician [CONS] Routine Comment: Consulting Provider: ROGER ABREU Physician Instructions: Reason For Exam: CHF EXACERBATION WITH ELEVATED TROPONIN LEVELS 01/21/21 14:18 Occupational Therapy Evaluate and Treat [CONS] Routine Comment: Debility Reason For Exam: eval and treat 01/22/21 10:40 Physical Therapy Evaluation and Treat [CONS] Routine Comment: Reason For Exam: debility Mode of Transport?: Wheelchair Primary care physician: AIR HAMMER STRIPPER Hospitalization Condition: Stable Hospital course: Discharge diagnosis: --Anemia; Drop in hemoglobin from 9.6-7.6-8.1-7.6 Patient is on Coumadin for her mechanical heart valve INR: 03 therapeutic, no external evidence of bleeding Stool for occult blood negative Cardiology recommended 1 unit PRBC transfusion Lateral discharge, patient's daughter refused blood transfusion --Acute congestive heart failure with preserved left ventricular function; Continue current antifailure medications Input output monitoring, Fluid restriction --History of mechanical aortic valve replacement; On chronic anticoagulation with Coumadin, therapeutic INR However mild drop in H&H, closely monitor Cardiology recommend to DC the patient on 2 mg of Coumadin Target INR 2.5-3.5 --History of atrial fibrillation; Rate controlled, continue current management --non-ST elevation HI; Nonspecific, elevation of troponin Cardiology evaluated no work-up at this point --Hypertension; moderate control --History of dementia; supportive care --DVT prophylaxis; patient is on Coumadin, therapeutic levels Disposition: DC-01 TO HOME OR SELFCARE Core Measure Documentation - Palliative Care Palliative Care/ Comfort Measures: Not Applicable - Core Measures Any of the following diagnoses?: none Exam - Constitutional Vitals: Temp Pulse Resp BP Pulse Ox 99.1 F 83 20 149/72 95 01/26/21 08:21 01/26/21 08:22 01/26/21 08:21 01/26/21 08:21 01/26/21 08:21 General appearance: Present: no acute distress, well-nourished - EENT Eyes: Present: PERRL ENT: hearing intact, clear oral mucosa - Neck Neck: Present: supple, normal ROM - Respiratory Respiratory effort: normal Respiratory: bilateral: CTA - Cardiovascular Heart rate: 78 Rhythm: regular Heart Sounds: Present: S1 & S2. Absent: rub, click - Extremities Extremities: pulses symmetrical, No edema Peripheral Pulses: within normal limits - Abdominal General gastrointestinal: Present: soft, non-tender, non-distended, normal bowel sounds Female genitourinary: Present: normal - Rectal Rectal Exam: deferred - Integumentary Integumentary: Present: clear, warm, dry - Musculoskeletal Musculoskeletal: gait normal, strength equal bilaterally - Psychiatric Psychiatric: appropriate mood/affect, intact judgment & insight - Neurologic Neurologic: CNII-XII intact, moves all extremities - Allied Health Allied health notes reviewed: nursing, case management Plan Activity: no restrictions Diet: renal Follow up with: PRIMARY CARE, [Primary Care Provider] - 3-5 Days Forms: Warfarin Discharge Instruction Prescriptions: [id number] CD [Cardizem CD] 240 mg PO QDAY #30 capsule Warfarin [Coumadin] 2 mg PO QHS #30 tablet Ferrous Sulfate [Feosol 325 MG tab] 325 mg PO BID #60 tablet Furosemide [Lasix TAB] 20 mg PO QDAY #30 tablet
== END 2021-01-26 17:00 | disposition home or self-care (01) | DRG 280 ==
LOC: ED 23:11 → 4A 01-20 00:51
PROVIDERS: ADMIT Internal Medicine; ATTEND Internal Medicine
DX: I21.4 Non-ST elevation (NSTEMI) myocardial infarction (principal); I50.41 Acute combined systolic (congestive) and diastolic (congestive) heart failure; I11.0 Hypertensive heart disease with heart failure; J44.9 Chronic obstructive pulmonary disease, unspecified; F03.90 Unspecified dementia, unspecified severity, without behavioral disturbance, psychotic disturbance, mood disturbance, and anxiety; D64.9 Anemia, unspecified; I48.91 Unspecified atrial fibrillation; Z79.01 Long term (current) use of anticoagulants; Z79.899 Other long term (current) drug therapy; Z95.4 Presence of other heart-valve replacement; Z87.891 Personal history of nicotine dependence
CPT/HCPCS: 36415; 71045; 80048; 80061; 80076; 82270; 82550; 82553; 82962; 83735; 83880; 84132; 84484; 85014; 85018; 85025; 85027; 85610; 85730; 86850; 86900; 86901; 86920; 93005; 93306; 96374; G0378; J1940; J7040

== ENCOUNTER 2022-05-26 18:51 | Emergency (ER) | payer MEDICARE, OTHER ==
[2022-05-26] MEDS ORDERED: TETANUS,DIPH,PERTUSS(ACELL) VACCINE 0.5 ML SYRINGE IM ONE (21:04)
--- NOTE | 2022-05-26 21:13 | Emergency Department Report ---
<DAISY CHRISTOPHER - Last Filed: 05/27/22 00:15> ED General Adult HPI - General Chief complaint: Wound/Laceration Stated complaint: INFECTED SORE ON LEG Time Seen by Provider: 05/26/22 19:55 Source: patient, family, EMS ( EMS documentation not available at time of chart dictation ), RN notes reviewed Mode of arrival: Stretcher Limitations: Physical Limitation, Other (Patient is demented) - History of Present Illness Initial comments: The patient was evaluated in the emergency department for symptoms described in the history of present illness. He/she was evaluated in the context of the global COVID-19 pandemic, which necessitated consideration that the patient might be at risk for infection with the virus that causes COVID-19. Institutional protocols and algorithms that pertain to the evaluation of patients at risk for COVID-19 are in a state of rapid change based on information released by regulatory bodies including the CDC and federal and state organizations. These policies and algorithms were followed during the patient's care in the emergency department. Please note that these policies, procedures and recommendations changed on a rapid basis. This is a pleasant and cooperative 72-year-old female. Past medical history includes anemia, congestive heart failure with preserved ejection fraction, on chronic anticoagulation, mechanical aortic valve replacement, A. fib, hypertension, and dementia. The patient presents to the ER today with family members with a complaint of distal right medial thigh swelling, which developed within the past day or so. No fever, chills, nausea, vomiting, diarrhea or COVID concerns. Patient also has a chronically contracted right lower extremity, and daughter is concerned that the proximal tibia region is infected, because of some discharge, and some redness. There is no urinary frequency. The right distal knee and tibial wounds are chronic. The patient herself denies physical pain. The daughter also endorses that the patient fell onto her right knee a few years ago, and has a chronic traumatic contracture, with lack of range of motion in the right knee. She also endorses that the patient occasionally picks feces from her diaper, and then scratches her anterior tibial region. There is no redness over the knee joint itself -: days(s), week(s) Location: right, lower extremity Consistency: constant Improves with: none Worsens with: none - Related Data Home Medications Medication Instructions Recorded Confirmed Last Taken Aspirin 81 mg PO DAILY 08/29/17 01/21/21 Unknown Citalopram [Celexa] 20 mg PO QDAY 08/29/17 01/21/21 08/22/17 Previous Rx's Medication Instructions Recorded Last Taken Type Acetaminophen/Codeine [Tylenol 1 tab PO Q6H PRN #30 tab 08/29/17 Unknown Rx /Codeine # 3 tab] Ondansetron [Zofran ODT TAB] 4 mg PO Q8HR PRN #14 tab.rapdis 08/29/17 Unknown Rx Citalopram [Celexa] 40 mg PO QDAY #30 tablet 03/02/18 Unknown Rx Ferrous Sulfate [Feosol 325 MG tab] 325 mg PO BID #60 tablet 01/25/21 Unknown Rx Furosemide [Lasix TAB] 20 mg PO QDAY #30 tablet 01/25/21 Unknown Rx Warfarin [Coumadin] 2 mg PO QHS #30 tablet 01/25/21 Unknown Rx dilTIAZem CD [Cardizem CD] 240 mg PO QDAY #30 capsule 01/25/21 Unknown Rx Allergies Allergy/AdvReac Type Severity Reaction Status Date / Time No Known Allergies Allergy Verified 03/02/18 17:52 ED Review of Systems Constitutional: denies: fever Eyes: denies: eye discharge ENT: denies: epistaxis Respiratory: denies: cough Cardiovascular: denies: chest pain Gastrointestinal: denies: abdominal pain Genitourinary: denies: dysuria Musculoskeletal: as per HPI. denies: joint swelling Skin: rash, lesions, change in color ED Past Medical Hx - Past Medical History Previous Medical History?: Yes Hx Hypertension: Yes Hx Heart Attack/AMI: No Hx Congestive Heart Failure: Yes (new onset chf) Hx Deep Vein Thrombosis: No Hx Arthritis: Yes Hx COPD: Yes Hx Dementia: Yes Hx HIV: No Additional medical history: MECHANICAL AORTIC VALVE REPLACEMENT, SMOKER - Surgical History Past Surgical History?: Yes Hx Coronary Stent: No Hx Internal Defibrillator: No Additional Surgical History: BACK SURGERIES, AORTIC VALVE REPLACEMENT - Social History Smoking Status: Former Smoker - Medications Home Medications: Home Medications Medication Instructions Recorded Confirmed Last Taken Type Acetaminophen/Codeine [Tylenol 1 tab PO Q6H PRN #30 tab 08/29/17 01/21/21 Unknown Rx /Codeine # 3 tab] Aspirin 81 mg PO DAILY 08/29/17 01/21/21 Unknown History Citalopram [Celexa] 20 mg PO QDAY 08/29/17 01/21/21 08/22/17 History Ondansetron [Zofran ODT TAB] 4 mg PO Q8HR PRN #14 tab.rapdis 08/29/17 01/21/21 Unknown Rx Citalopram [Celexa] 40 mg PO QDAY #30 tablet 03/02/18 01/21/21 Unknown Rx Ferrous Sulfate [Feosol 325 MG tab] 325 mg PO BID #60 tablet 01/25/21 Unknown Rx Furosemide [Lasix TAB] 20 mg PO QDAY #30 tablet 01/25/21 Unknown Rx Warfarin [Coumadin] 2 mg PO QHS #30 tablet 01/25/21 Unknown Rx dilTIAZem CD [Cardizem CD] 240 mg PO QDAY #30 capsule 01/25/21 Unknown Rx ED Physical Exam - General Limitations: Physical Limitation, Other (Patient is demented. Patient is a poor historian) General appearance: in no apparent distress - Head Head exam: Present: atraumatic, normocephalic - Eye Eye exam: Present: normal appearance, EOMI. Absent: nystagmus - ENT ENT exam: Present: normal exam, normal orophraynx, mucous membranes moist, normal external ear exam - Neck Neck exam: Present: normal inspection, full ROM. Absent: tenderness, meningismu s - Respiratory Respiratory exam: Present: normal lung sounds bilaterally. Absent: respiratory distress, wheezes, rales, rhonchi, stridor, decreased breath sounds - Cardiovascular Cardiovascular Exam: Present: normal rhythm, irregular rhythm. Absent: bradycardia, tachycardia, systolic murmur, diastolic murmur, rubs, gallop - GI/Abdominal GI/Abdominal exam: Present: soft. Absent: distended, tenderness, guarding, rebound, rigid, pulsatile mass - Extremities Exam Extremities exam: Present: full ROM (Bilateral upper extremities.), other (2+ pulses noted in the bilateral upper and lower extremities. There is no long bony tenderness. The muscular compartments are soft). Absent: normal inspection (On the left distal medial thigh, there is an oval circumferential indurated area which is nontender, which has no redness, pus or streaking), calf tenderness - Back Exam Back exam: Present: normal inspection. Absent: tenderness, CVA tenderness (R), CVA tenderness (L), paraspinal tenderness, vertebral tenderness - Neurological Exam Neurological exam: Present: alert, other (The patient is awake and alert to name. No facial droop. Tongue midline. 5 out of 5 strength bilateral upper extremities. Right lower extremity contracted. Moving left lower extremity.) - Psychiatric Psychiatric exam: Present: flat affect - Skin Skin exam: Present: warm, erythema, other (On the proximal tibial region, there is minimal erythema, and punctate lesions, that are draining bloody serous discharge. Nontender.). Absent: rash ED Course - Reevaluation(s) Reevaluation #1: 05/26/22 22:37 Differential diagnosis, including but not limited to: Hematoma, arthritis, infected wound, osteomyelitis Assessment and plan: 72-year-old female, who is afebrile, with reassuring vital signs, in no acute distress, with nontender distal right medial thigh swelling, which has no redness, pus or streaking, no significant pain with passive range of motion of the right knee, has a chronic right-sided knee contracture, with anterior tibial wounds which have some superinfection and redness. She has appropriate pulses X-ray the lower extremity suggests osseous destruction, question chronic appearing osteomyelitis. However, I suspect that this is chronic traumatic bony erosion, from remote trauma. I do not suspect acute osteomyelitis or acute septic joint. There is no redness over the knee. When I attempt to range the knee, the patient does not grimace or moan or push my hand away Patient does not have significant pain with passive range of motion of the right knee. I do not clinically favor acute osteomyelitis, and so we do not favor acute septic joint. Contacted general surgeon on-call, Dr. Terrell. Discussed the patient's history, physical, x-ray findings and clinical impression. He indicates he can follow in consultation for possible superinfected wound on the right anterior tibial region. We will also order CT scan of the lower extremity to better characterize the leg. 05/26/22 23:59 Discussed clinical impression with family. They are agreeable to the plan of care. We will cover empirically with antibiotics. He will be transferred to the oncoming physician to follow-up on CT scan of the leg, and arrange for ultimate disposition 05/27/22 00:16 ED Medical Decision Making - Lab Data Result diagrams: 05/26/22 21:26 05/26/22 21:26 Vital Signs 05/26/22 05/26/22 05/26/22 18:55 21:02 21:16 Temperature 97.8 F Pulse Rate 94 H 95 H 86 Respiratory 16 24 21 Rate Blood Pressure 111/74 Blood Pressure 136/98 [Left] O2 Sat by Pulse 98 99 Oximetry 05/26/22 05/26/22 21:21 21:24 Temperature 97.9 F 97.9 F Pulse Rate 87 90 Respiratory 20 20 Rate Blood Pressure 111/74 Blood Pressure 111/74 [Left] O2 Sat by Pulse 100 98 Oximetry Lab Results 05/26/22 05/26/22 05/26/22 Range/Units 21:26 21:26 21:26 WBC 12.8 H (4.5-11.0) K/mm3 RBC 3.55 L (3.65-5.03) M/mm3 Hgb 10.4 (10.1-14.3) gm/dl Hct 33.3 (30.3-42.9) % MCV 94 (79-97) fl MCH 29 (28-32) pg MCHC 31 (30-34) % RDW 13.9 (13.2-15.2) % Plt Count 350 (140-440) K/mm3 ESR 61 (0-20) mm/Hr PT 27.5 H (12.2-14.9) Sec. INR 2.17 H (0.87-1.13) APTT 41.7 H (24.2-36.6) Sec. Sodium 138 (137-145) mmol/L Potassium 3.8 (3.6-5.0) mmol/L Chloride 104.2 (98-107) mmol/L Carbon Dioxide 21 L (22-30) mmol/L Anion Gap 17 mmol/L BUN 25 H (7-17) mg/dL Creatinine 0.8 (0.6-1.2) mg/dL Estimated GFR > 60 ml/min BUN/Creatinine Ratio 31 % Glucose 79 (65-100) mg/dL Calcium 8.2 L (8.4-10.2) mg/dL Total Bilirubin 0.20 (0.1-1.2) mg/dL AST 19 (5-40) units/L ALT 13 (7-56) units/L Alkaline Phosphatase 75 (35-129) units/L Total Protein 7.1 (6.3-8.2) g/dL Albumin 2.5 L (3.9-5) g/dL Albumin/Globulin Ratio 0.5 % - Radiology Data Radiology results: pending, report reviewed, image reviewed RIGHT KNEE, 4 VIEWS INDICATION / CLINICAL INFORMATION: right medial thigh swelling, distal knee wound. COMPARISON: None available. FINDINGS: Radiographs of the right knee are abnormal. There is limited visualization due to the inability of the x-ray technologist to obtain different views of the knee. Given this limitation, there is gross destruction of the proximal tibia and distal femur, with marked destruction of the knee joint in general. It is unclear if joint destruction is chronic or due to osteomyelitis. No obvious gas collection within the soft tissues. Impression Limited visualization of the right knee. However there is marked osseous destruction of the knee joint with gross destruction of the articular surfaces of the distal femur and proximal tibia. Chronicity is unknown. Osteomyelitis could have this appearance and clinical correlation is recommended. Signer Name: Penny Singh MD Signed: 05/26/2022 8:52 PM Workstation Name: [id number] ED Disposition Clinical Impression: Mass of right knee, Osteomyelitis of right knee region Disposition: 02 SHORT TERM HOSPITAL Condition: Stable Referrals: MATEO ANDREW MD [Primary Care Provider] - 3-5 Days <IAIN DE LA TORRE - Last Filed: 05/27/22 05:42> ED Course - Reevaluation(s) Reevaluation #1: 05/27/22 05:30 I called patient's daughter/grounds foreman and explained that there is not orthopedic coverage available at multiple hospitals in [place]. Patient is adamant that she does not want patient transferred to [place] or [place] and initially demanded to know all the hospitals that have been called thus far. She wants to be able to visit her mother locally and still be in the [place] area to take care of her family. When the orthopedic surgeon called back I informed her that drainage at the knee is required prior to possible orthopedic transfer and would need to be attempted. 05/27/22 05:48 At this point I will need to sign out to oncoming provider Dr. Tenorio to attempt needle aspiration of the joint for fluid reporting analyst to rule out septic arthritis. Patient did receive IV vancomycin and ceftriaxone yesterday evening. - Consultations Consultation #1: 05/27/22 3:02 AM received call back from [place] stating they are still unable to reach the on-call orthopedic surgeon therefore called the facility 3:46 AM [facility] states they are on diversion 3:41 AM [facility] states they are at capacity 3:55 AM [facility] 3:58 AM [facility] is on diversion 4AM [facility] on diversion 4:15 AM Case to be discussed with Dr. Terrell orthopedic surgery regarding CT jay [email or web address]. Agrees that patient needs orthopedic consultation but will assess patient in the ED today 5 AM: Case discussed with [facility]. Case discussed with midlevel Valeri Dyer nurse practitioner. After consultation with covering orthopedic surgery recommends needle aspiration of the joint to assess for septic arthritis. If patient does not have septic arthritis then patient may be me dically management and will not need orthopedic transfer ED Medical Decision Making - Lab Data Result diagrams: 05/26/22 21:26 05/26/22 21:26 Critical Care Time: Yes <LATASHA TENORIO - Last Filed: 05/27/22 09:51> ED Review of Systems ROS: Stated complaint: INFECTED SORE ON LEG Other details as noted in HPI ED Course Vital Signs 05/26/22 05/26/22 05/26/22 18:55 21:02 21:16 Temperature 97.8 F Pulse Rate 94 H 95 H 86 Respiratory 16 24 21 Rate Blood Pressure 111/74 Blood Pressure 136/98 [Left] O2 Sat by Pulse 98 99 Oximetry 05/26/22 05/26/22 05/26/22 21:21 21:24 21:30 Temperature 97.9 F 97.9 F Pulse Rate 87 93 H 94 H Respiratory 20 24 22 Rate Blood Pressure 111/74 111/74 Blood Pressure 111/74 [Left] O2 Sat by Pulse 100 99 85 Oximetry 05/26/22 05/26/22 05/26/22 21:46 22:00 22:16 Temperature Pulse Rate 86 82 72 Respiratory 18 17 19 Rate Blood Pressure 111/74 127/52 127/52 Blood Pressure [Left] O2 Sat by Pulse 100 100 100 Oximetry 05/26/22 05/26/22 05/26/22 22:30 22:46 23:00 Temperature Pulse Rate 84 85 83 Respiratory 20 18 18 Rate Blood Pressure 127/52 127/52 129/57 Blood Pressure [Left] O2 Sat by Pulse 100 100 100 Oximetry 05/26/22 05/26/22 05/26/22 23:16 23:30 23:46 Temperature Pulse Rate 82 81 87 Respiratory 20 16 19 Rate Blood Pressure 129/57 129/57 129/57 Blood Pressure [Left] O2 Sat by Pulse 100 100 100 Oximetry 05/27/22 05/27/22 05/27/22 00:00 00:16 00:30 Temperature Pulse Rate 90 85 88 Respiratory 20 22 21 Rate Blood Pressure 127/45 127/45 127/45 Blood Pressure [Left] O2 Sat by Pulse 100 99 96 Oximetry 05/27/22 05/27/22 05/27/22 00:47 01:00 01:16 Temperature Pulse Rate 106 H 97 H Respiratory 21 12 Rate Blood Pressure 127/45 127/45 127/45 Blood Pressure [Left] O2 Sat by Pulse 99 99 Oximetry 05/27/22 05/27/22 05/27/22 01:30 01:46 02:00 Temperature Pulse Rate 105 H 92 H 91 H Respiratory 19 19 17 Rate Blood Pressure 139/91 137/49 128/54 Blood Pressure [Left] O2 Sat by Pulse 100 100 100 Oximetry 05/27/22 05/27/22 05/27/22 02:16 02:30 02:46 Temperature Pulse Rate 85 87 81 Respiratory 18 18 19 Rate Blood Pressure 128/54 128/54 128/54 Blood Pressure [Left] O2 Sat by Pulse 100 100 100 Oximetry 05/27/22 05/27/22 05/27/22 03:00 03:16 03:30 Temperature Pulse Rate 88 92 H 85 Respiratory 18 14 16 Rate Blood Pressure 133/56 133/56 133/56 Blood Pressure [Left] O2 Sat by Pulse 100 100 100 Oximetry 05/27/22 05/27/22 05/27/22 03:46 04:00 04:16 Temperature Pulse Rate 95 H 78 80 Respiratory 19 11 L 14 Rate Blood Pressure 133/56 122/49 122/49 Blood Pressure [Left] O2 Sat by Pulse 100 100 100 Oximetry 05/27/22 05/27/22 05/27/22 04:30 04:46 05:00 Temperature Pulse Rate 83 80 75 Respiratory 16 11 L 15 Rate Blood Pressure 122/49 122/49 129/48 Blood Pressure [Left] O2 Sat by Pulse 100 100 100 Oximetry 05/27/22 05/27/22 05/27/22 05:16 05:30 05:46 Temperature Pulse Rate 84 77 75 Respiratory 13 14 16 Rate Blood Pressure 129/48 129/48 129/48 Blood Pressure [Left] O2 Sat by Pulse 100 100 100 Oximetry 05/27/22 05/27/22 05/27/22 06:00 06:16 06:30 Temperature Pulse Rate 80 84 88 Respiratory 15 16 19 Rate Blood Pressure 129/48 122/52 Blood Pressure [Left] O2 Sat by Pulse 100 100 100 Oximetry 05/27/22 05/27/22 05/27/22 06:46 07:00 07:16 Temperature Pulse Rate 87 89 87 Respiratory 12 16 18 Rate Blood Pressure 122/52 119/61 119/61 Blood Pressure [Left] O2 Sat by Pulse 100 100 100 Oximetry 05/27/22 05/27/22 05/27/22 07:30 07:46 09:00 Temperature Pulse Rate 91 H 103 H 93 H Respiratory 16 23 24 Rate Blood Pressure 119/61 119/61 106/62 Blood Pressure [Left] O2 Sat by Pulse 100 100 100 Oximetry 05/27/22 05/27/22 09:16 09:30 Temperature Pulse Rate 88 80 Respiratory 16 23 Rate Blood Pressure 106/62 106/62 Blood Pressure [Left] O2 Sat by Pulse 100 100 Oximetry - Reevaluation(s) Reevaluation #1: 05/27/22 09:49 Patient remained stable. Due to distortion of anatomy it would be preferable to perform image guided arthrocentesis. I discussed case with on-call orthopedics surgeon Dr. Sanders at [place] who accepts transfer. ED Medical Decision Making - Lab Data Result diagrams: 05/26/22 21:26 05/26/22 21:26 Critical care attestation.: If time is entered above; I have spent that time in minutes in the direct care of this critically ill patient, excluding procedure time. ED Disposition Is pt being admited?: No
[2022-05-26 21:53] LABS: Hematocrit 33.3 % (30.3-42.9); Hemoglobin 10.4 gm/dl (10.1-14.3); Mean Corpuscular HGB Conc 31 % (30-34); Mean Corpuscular Volume 94 fl (79-97); Platelet Count 350 K/mm3 (140-440); Red Blood Count 3.55 M/mm3 (3.65-5.03); Red Cell Distribution Width 13.9 % (13.2-15.2)
--- NOTE | 2022-05-26 21:56 | XRay Report ---
RIGHT KNEE, 4 VIEWS INDICATION / CLINICAL INFORMATION: right medial thigh swelling, distal knee wound. COMPARISON: None available. FINDINGS: Radiographs of the right knee are abnormal. There is limited visualization due to the inability of [facility] x-ray technologist to obtain different views of the knee. Given this limitation, there is gross kelsea truction of the proximal tibia and distal femur, with marked destruction of the knee joint in general . It is unclear if joint destruction is chronic or due to osteomyelitis. No obvious gas collection wi thin the soft tissues. Impression Limited visualization of the right knee. However there is marked osseous destruction of th e knee joint with gross destruction of the articular surfaces of the distal femur and proximal tibia. Chronicity is unknown. Osteomyelitis could have this appearance and clinical correlation is recommen ded. Signer Name: Penny Singh MD Signed: 05/26/2022 9:52 PM Workstation Name: [id number]
[2022-05-26 21:58] LABS: INR 2.17 (0.87-1.13); Partial Thromboplastin Time 41.7 Sec. (24.2-36.6)
[2022-05-26 22:08] LABS: Alanine Aminotransferase 13 units/L (7-56); Albumin 2.5 g/dL (3.9-5); BUN/Creatinine Ratio 31; Blood Urea Nitrogen 25 mg/dL (7-17); Calcium 8.2 mg/dL (8.4-10.2); Hemolysis Index 29
[2022-05-26 22:20] LABS: Erythrocyte Sedimentation Rate 61 mm/Hr (0-20)
[2022-05-26] MEDS ORDERED: VANCOMYCIN 1,250 MG in SODIUM CHLORIDE 0.9% 500 ML 250 ML IV ONE (23:56)
[2022-05-26] MEDS ORDERED: cefTRIAXone/NS 1 GM/50 ML 1 GM/50 ML BAG IV ONE (23:56)
--- NOTE | 2022-05-27 02:12 | Cat Scan Report ---
CT RIGHT KNEE WITH CONTRAST INDICATION / CLINICAL INFORMATION: RIGHT leg wound, medial thigh swelling. TECHNIQUE: All CT scans at this location are performed using CT dose reduction for ALARA by means of automated exposure control. Approximately 100 cc of Omnipaque 300 was administered. COMPARISON: Right knee radiographs from earlier in the day FINDINGS: BONES: There is marked destruction of the proximal tibia, as well as moderate destruction of the dist al femur. There is posterior dislocation of the knee joint. There is also destruction of the fibular head. No osseous lesion. JOINT SPACE: There is significant arthrosis of the bilateral knees. There is a small joint effusion. No significant popliteal cyst. No intra-articular bodies. MUSCLES / TENDONS: No significant abnormality. LIGAMENTS: No significant abnormality. SOFT TISSUES: There is a prominent soft tissue abscess along medial aspect of the knee, measuring 8.8 x 5.0 x 12.8 cm. ADDITIONAL FINDINGS: None. IMPRESSION: 1. Significant destruction of the proximal tibia, fibular head and distal femur of the right knee. Th is is most consistent with septic arthritis with associated severe osteomyelitis. There is also a sof t tissue abscess along the medial aspect of the knee measuring 8.8 x 5.0 x 12.8 cm. Signer Name: Edgardo West DO Signed: 05/27/2022 2:07 AM Workstation Name: [id number]
[2022-05-27 03:43] LABS: Total Cells Counted 100
[2022-05-27 03:44] LABS: Basophils % (Manual) 0 % (0.0-1.8); Platelet Estimate Consistent w Auto; RBC Morphology Normal
[2022-05-27] MEDS ORDERED: MORPHINE 4 MG/1 ML INJ IV ONE (13:20)
[2022-05-27] MEDS ORDERED: VANCOMYCIN 1,000 MG in SODIUM CHLORIDE 0.9% 500 ML 500 ML IV ONE (15:00)
[2022-05-27] MEDS ORDERED: VANCOMYCIN/NS 1 GM/250 ML 1 GM/250 ML BAG IV SCH (16:00)
[2022-05-28 09:44] VITALS: BP 120/41
== END 2022-05-28 09:47 | disposition short-term general hospital (02) ==
LOC: ED 18:51
DX: M25.861 Other specified joint disorders, right knee (principal); M86.8X6 Other osteomyelitis, lower leg
CPT/HCPCS: 36415; 73564; 73701; 80053; 82140; 85007; 85025; 85610; 85652; 85730; 86140; 87040; 90471; 90715; 96365; 96367; 96368; 96375; 99285; J0696; J2270; J3370; J7040; Q9967; 96372; 99284